=== PATIENT | female | born 1940 | race Caucasian/White ===

== ENCOUNTER 2022-05-08 21:52 | Inpatient (IN) | payer MEDICARE, OTHER, MEDICAID, SELFPAY ==
[2022-05-08] VITALS (7 sets, daily range): BP systolic 143–163; BP diastolic 65–75; PULSE 58–63; RESP 18; TEMP 37.8; O2SAT 94–100
--- NOTE | 2022-05-08 22:09 | DI.RAD.S_ITS ---
PROCEDURE: XR HIP W PEL IF DONE RT 2V INDICATIONS: GLF with pain, unable to ambulate TECHNIQUE: AP pelvis with lateral view of the right hip. COMPARISON: None. FINDINGS: Bones: There is a mildly displaced and impacted subcapital fracture of the right femoral neck. There is a proximal displacement of the femoral shaft component. The pelvic ring demonstrates no acute fracture. There are postsurgical changes demonstrated in the right bony pelvis with surgical screws traversing the right sacroiliac joint and right superior pubic ramus. Soft tissues: The visualized bowel gas pattern is normal. No suspicious soft tissue calcifications. IMPRESSION: 1. Subcapital fracture of the right femoral neck. Dictated by: Lux Waite M.D. on 05/08/2022 at 23:14 Approved by: Lux Wiate M.D. on 05/08/2022 at 23:17
--- NOTE | 2022-05-08 22:09 | DI.RAD.S_ITS ---
PROCEDURE: XR KNEE RT 3V INDICATIONS: GLF with pain TECHNIQUE: 3 views of the knee were acquired. COMPARISON: None. FINDINGS: Bones: No fractures or dislocations. There is mild joint space narrowing in the lateral compartment with subchondral sclerosis and osteophytosis. No suspicious bony lesions. Soft tissues: No joint effusion. No suspicious soft tissue calcifications. IMPRESSION: 1. No fracture or dislocation. 2. Mild osteoarthritic changes in the lateral compartment. Dictated by: Lux Waite M.D. on 05/08/2022 at 23:18 Approved by: Lux Waite M.D. on 05/08/2022 at 23:18
--- NOTE | 2022-05-08 23:07 | DI.RAD.S_ITS ---
PROCEDURE: XR CHEST 1V INDICATIONS: cough fall TECHNIQUE: One view of the chest was acquired. COMPARISON: None. FINDINGS: Surgical changes and devices: None. Lungs and pleura: No pleural effusions or definite pneumothorax. There are bilateral skin folds noted. Mild interstitial prominence is demonstrated likely representing chronic changes. The no acute consolidation. Mediastinum: Mediastinal contours appear normal. Heart size is normal. Bones and chest wall: No displaced fractures identified. No suspicious bony lesions. Overlying soft tissues appear unremarkable. IMPRESSION: 1. No definite acute cardiopulmonary disease. Dictated by: Lux Waite M.D. on 05/08/2022 at 23:50 Approved by: Lux Waite M.D. on 05/08/2022 at 23:56
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
[2022-05-08] MEDS: MORPHINE 2 MG/ML INJ IV (23:12)
[2022-05-08 23:14] LABS: COVID19 -Nasal RAPID POSITIVE (Negative)
[2022-05-08 23:39] LABS: Lactate (Lactic Acid) 0.8 mmol/L (0.7-2.1)
[2022-05-08 23:41] LABS: Alanine Aminotransferase 31 IU/L (<35); Albumin 3.8 g/dL (3.5-5.0); Albumin Globulin Ratio 1.3 (1.0-2.8); Alkaline Phosphatase 59 U/L (38-126); BUN Creatinine Ratio 32.3 (6-22); Bilirubin Total 0.5 mg/dL (0.2-1.3); Blood Urea Nitrogen 30 mg/dL (7-17); Carbon Dioxide 25 mmol/L (22-32); Chloride 96 mmol/L (98-107); Creatine Kinase 373 U/L (30-135); Estimated Glomerular Filt Rate > 60 mL/min (>60); Globulin 2.9 g/dL (1.7-4.1); Glucose 91 mg/dL (80-110); Lipase 173 U/L (23-300); Sodium 130 mmol/L (137-145); Total Protein 6.7 g/dL (6.3-8.2)
[2022-05-08 23:42] LABS: HEMOLYSIS 129 (0-50)
[2022-05-08 23:45] LABS: Aspartate Aminotransferase 68 IU/L (14-36); Potassium 3.9 mmol/L (3.4-5.1)
[2022-05-08 23:46] LABS: Add Manual Diff / Slide Review YES; Hematocrit 38.8 % (36-46); Hemoglobin 13.1 g/dL (12.0-16.0); Mean Corpuscular HGB Conc 33.7 % (30-36); Mean Corpuscular Hemoglobin 31.9 PG (26-34); Mean Corpuscular Volume 94.9 fL (80-100); Platelet Count 180 X10^3/uL (150-400); Red Blood Cell Count 4.09 X10^6/uL (4.0-5.2); Red Cell Distribution Width 13.6 % (11.6-14.8); White Blood Cell Count 5.8 X10^3/uL (4.5-11.0)
[2022-05-08 23:52] LABS: Troponin I 0.068 ng/mL (0.01-0.034)
[2022-05-08 23:56] LABS: CKMB % Relative Index 0.6 % (1.5-5.0); Creatine Kinase MB 2.32 ng/mL (<2.37)
[2022-05-08 23:58] LABS: Procalcitonin 0.07 ng/mL (<0.5)
[2022-05-09] VITALS (25 sets, daily range): BP systolic 93–164; BP diastolic 54–89; PULSE 52–68; RESP 10–34; TEMP 36.2–37.5; O2SAT 92–100; BMI 17.4
--- NOTE | 2022-05-09 | DI.RAD.S_ITS ---
PROCEDURE: XR HIP W PEL IF DONE RT 2V COMPARISON: [facility], CR, XR HIP W PEL IF DONE RT 2V, 05/08/2022, 22:09. INDICATIONS: CANNULATED SCREWS RIGHT HIP FINDINGS: Intraoperative fluoroscopic views of screw fixation in the right hip placement performed. IMPRESSION: Intraoperative fluoroscopic views of the right hip. Dictated by: Ford Lemos M.D. on 05/09/2022 at 18:09 Approved by: Ford Lemos M.D. on 05/09/2022 at 18:10
[2022-05-09 01:53] LABS: Troponin I 0.077 ng/mL (0.01-0.034)
[2022-05-09] MEDS: SODIUM CHLORIDE 0.9% 1,000 ML 100 ML IV (03:02)
[2022-05-09] MEDS: MORPHINE 2 MG/ML INJ IV (03:02)
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
--- NOTE | 2022-05-09 03:56 | PC.NURSE ---
Patient admitted to ICU 231 under acute care for a broken R femur. Surgery planned for later this afternoon. Patient positive for COVID, c/o fevers and cough for the past three days. On admission patient c/o 8/10 pain, PRN morphine given. BP 150's/70's, O2 > 95% on 2L NC. All admission questions answered.
[2022-05-09 04:05] LABS: RBC Urine 0-1/HPF (0-5/HPF); Squamous Epithelial Cell Urine 0-1 /HPF (0-5/HPF); WBC Urine None Seen (0-5/HPF)
[2022-05-09 04:06] LABS: Bacteria Urine None Seen
[2022-05-09 04:08] LABS: Culture Indicated Urine Cult Not Indicated
[2022-05-09] MEDS: ACETAMINOPHEN 325 MG TABLET 650 MG PO (05:18)
[2022-05-09] MEDS: NICOTINE 21 MG PATCH TOP (05:18)
[2022-05-09 05:33] LABS: Neutrophils Absolute Manual 4408 /uL (3000-5900); Total Cells Counted 100
[2022-05-09 05:34] LABS: RBC Morphology Normal Morphology
[2022-05-09 06:37] LABS: Add Manual Diff / Slide Review NO; Basophils Absolute Auto 0 /uL (0-100); Basophils Percent Auto 0.7 % (0-2); Eosinophils Absolute Auto 0 /uL (0-450); Eosinophils Percent Auto 0.1 % (2-4); Hematocrit 37.4 % (36-46); Hemoglobin 12.8 g/dL (12.0-16.0); Lymphocytes Absolute Auto 1900 /uL (1100-4500); Lymphocytes Percent Auto 35.4 % (25-40); Mean Corpuscular HGB Conc 34.2 % (30-36); Mean Corpuscular Hemoglobin 32.2 PG (26-34); Monocytes Absolute Auto 600 /uL (0-900); Monocytes Percent Auto 11.5 % (3-14); Neutrophils Absolute Auto 2800 /uL (1500-7000); Neutrophils Percent Auto 52.3 % (50-75); Platelet Count 152 X10^3/uL (150-400); Red Blood Cell Count 3.98 X10^6/uL (4.0-5.2); Red Cell Distribution Width 13.4 % (11.6-14.8); White Blood Cell Count 5.4 X10^3/uL (4.5-11.0)
[2022-05-09 06:44] LABS: Magnesium 1.5 mg/dL (1.6-2.3)
[2022-05-09 06:45] LABS: Alanine Aminotransferase 28 IU/L (<35); Albumin 3.4 g/dL (3.5-5.0); Albumin Globulin Ratio 1.3 (1.0-2.8); Alkaline Phosphatase 60 U/L (38-126); Aspartate Aminotransferase 52 IU/L (14-36); BUN Creatinine Ratio 31.9 (6-22); Bilirubin Total 0.2 mg/dL (0.2-1.3); Blood Urea Nitrogen 22 mg/dL (7-17); Calcium 7.4 mg/dL (8.4-10.2); Carbon Dioxide 23 mmol/L (22-32); Chloride 100 mmol/L (98-107); Estimated Glomerular Filt Rate > 60 mL/min (>60); Globulin 2.6 g/dL (1.7-4.1); Glucose 86 mg/dL (80-110); HEMOLYSIS < 15 (0-50); Potassium 3.4 mmol/L (3.4-5.1); Sodium 131 mmol/L (137-145)
[2022-05-09 06:46] LABS: Creatine Kinase 414 U/L (30-135)
[2022-05-09 06:57] LABS: Troponin I 0.089 ng/mL (0.01-0.034)
[2022-05-09 07:02] LABS: CKMB % Relative Index 0.4 % (1.5-5.0); Creatine Kinase MB 1.76 ng/mL (<2.37)
[2022-05-09] MEDS: DEXAMETHASONE 10 MG/ML VIAL 6 MG IV (08:31)
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
[2022-05-09] MEDS: MAGNESIUM SULFATE 4 GM/100 ML PIGGYBACK IV (09:58)
[2022-05-09] MEDS: CEFAZOLIN 2 GM/100 ML PREMIX 100 ML IV ×2 (09:58→16:52)
[2022-05-09] MEDS: POTASSIUM CHLORIDE 20 MEQ TAB 40 MEQ PO (09:58)
--- NOTE | 2022-05-09 12:54 | CM.DANOTE ---
DCP: Case received, EMR reviewed. Called patient from her room, since she is COVID positive. Introduced self and role. Was able to obtain information regarding patient's baseline activity level prior to her hospitalization. DCP assessment completed with information currently available. Patient is an 81 year old female who admitted early this morning to the care of the hospitalist team. PCP: Dr. West Payer: Medicare/IPDIA. Patient came to the hospital via ambulance secondary to having a ground level fall. Patient had been walking her dog, and her dog and another dog had an altercation causing her to get tangled in the leashe and have a ground level fall. EMS was called, patient sustained a displaced and impacted subcapital fracture of the right femoral neck. Patient is scheduled for surgery this afternoon. She is also COVID positive. Spoke to patient in her room via phone. She is pleasant, stated, she really wasn't having any COVID symptoms, just felt warm at times. Confirmed that she resides here in [place] with her grandson, Mark. At her baseline, she is independent. Mentioned if she needs rehab post surgery, barrier may be her COVID positive status. Did let her know that home health is also an option. Patient stated, do you think I'll be in a wheelchair. Let her know that she will have surgery, then work with P.T, who's goal is to get her moving, and back to her baseline. Tequila at [facility] had mentioned that she has a positive COVID resident. Asked her if she could possibly and take patient if she ends up needing penitentiary. Stated, she can run this by her team. Gave her patient information to review. P: DCP to continue to follow. Will see how she does post surgery with P.T. [facility] will review patient. Alessia Brand RN/Stenotypist Discharge Planning/Care Management CM Discharge Assessment Start: 05/09/22 12:40 Freq: Status: Active Protocol: Document 05/09/22 12:40 (Rec: 05/09/22 12:45 [id number]) Discharge Planning Assessment Assigned [employer] Alessia Brand RN/Stenotypist Advance Directives? No History Provided By Patient,Medical Record Prior Living Arrangements House Household Members family Type of transporation used prior to Drives own vehicle admit Independent with ADL's Yes Is patient alert and oriented? Yes Caregiver for Another No Comment Will have to see how patient does after surgery, and with P .T. Barriers to Discharge Yes Comment Patient has COVID, will be challenging to get her to a rehab facility if this is what she needs. Discharge Plan Alf Facility Transportation Arrangement Facility or family, if she is able to go home with home health Referrals Initiated Other Additional Comment Did call [facility] and asked if they take positive COVID, they will review this patient to see if they may possibly be able to accept. Whiteboard Updated in Patient Room with No name and ext. # of [facility] Comment Patient is COVID positive Review Status In Process Next Review Type Continued Stay Review
[2022-05-09] MEDS: clonazePAM 0.5 MG TABLET 2 MG PO ×2 (14:31→20:43)
[2022-05-09 15:14] LABS: Creatine Kinase 425 U/L (30-135)
[2022-05-09 15:30] LABS: CKMB % Relative Index 0.4 % (1.5-5.0); Creatine Kinase MB 1.51 ng/mL (<2.37)
--- NOTE | 2022-05-09 16:02 | SUR.OPER ---
Head on pillow. Supine on fracture table with operative leg secured in traction. Other leg secured in padded stirrup. Arms across chest, secured with sheet.
[2022-05-09] MEDS: BUPIVACAINE 0.5% W/ EPI (PF) 30 ML VIAL INJ (17:35)
--- NOTE | 2022-05-09 18:06 | P.OP_ITS ---
Operative Date/Time/Diagnoses Date of procedure: 05/09/22 Time of procedure: 17:00 Pre-op diagnosis: Right femoral neck fracture Post-op diagnosis: same Procedure & Clinicians Procedure: Closed reduction internal fixation femoral neck fracture Same procedure as scheduled: Yes Indications: Right femoral neck fracture Click Yes if Unassisted: Yes Anesthesia Type: Spinal Operative Notes Findings: Impacted slightly displaced femoral neck fracture Closure Type: primary Applied: implant(s) (3 x 7.3 mm partially-threaded cannulated screws) Estimated Blood Loss (mL): 5 Procedure in detail: On date of service, patient was met in the holding area where his operative site was signed and witnessed by the OR staff. Surgeries once again discussed with the patient and any remaining questions or concerns he had were answered fully. Patient received 2 g of Ancef preoperatively. Patient was taken back to the operating theater where general anesthesia was admitted. Patient was then transferred to the fracture table. Both feet were well padded and placed into fracture boot. A well-padded perineal post was placed. The left leg was slightly elevated and internally rotated was some distraction. The right leg was placed in scissor position on a lowered position. X-ray was brought in and AP and lateral views were obtained showing maintenance of a nondisplaced femoral neck fracture. Time-out had previously been formed verifying patient's name, procedure, and operative site. The leg was then prepped and draped in the normal sterile fashion. Ten blade was used to make a small incision on the lateral aspect of thigh. Adams elevator was then used to elevate off a small area of the muscular tissue so we could get to the shaft of the femur. Guidewire was placed up into the femoral head in a center center position. This was verified on x-ray. Once we were satisfied with the position of the guidewire 2 additional guidewires were placed using the targeting guide. These were also verified with AP and lateral views with the C- arm. Once we were satisfied with the positioning and of the 3 guidewires they were measured and the appropriate screws were placed. Final x-rays were obtained verifying screw positioning and maintenance of reduction of the femoral neck fracture. The wound was then copiously irrigated and then closed in a layered fashion. The wound was cleaned, dried, and dressed. Patient was taken to the PACU in stable condition. Complications: none Post-operative Condition: stable Disposition: Acute Care Plan for aftercare: Patient will be toe-touch weight-bearing to the right lower extremity
--- NOTE | 2022-05-09 18:19 | SUR.PHASEI ---
Report called to Monique.
--- NOTE | 2022-05-09 18:46 | SUR.PHASEI ---
Patient transferred to [facility] on her bed. VS stable. Report to [place]. IV saline locked. Right hip dressing CDI. Spinal at L4. SCDS applied.
[2022-05-09] MEDS: LACTATED RINGERS 1,000 ML 125 ML IV (18:56)
[2022-05-09] MEDS: GABAPENTIN 100 MG CAPSULE PO (20:43)
[2022-05-09] MEDS: DOCUSATE 100 MG CAPSULE PO (20:43)
[2022-05-09] MEDS: TRAZODONE 100 MG TABLET PO (20:43)
[2022-05-09 21:30] LABS: Creatine Kinase 406 U/L (30-135)
[2022-05-09 21:43] LABS: Troponin I 0.046 ng/mL (0.01-0.034)
[2022-05-09 21:45] LABS: CKMB % Relative Index 0.4 % (1.5-5.0); Creatine Kinase MB 1.69 ng/mL (<2.37)
[2022-05-09] MEDS: ONDANSETRON 4 MG ODT PO (23:46)
[2022-05-10] VITALS (43 sets, daily range): BP systolic 96–147; BP diastolic 55–67; PULSE 46–72; RESP 12–44; TEMP 36.3–36.6; O2SAT 87–95
[2022-05-10] MEDS: CEFAZOLIN 2 GM/100 ML PREMIX 100 ML IV ×2 (01:10→08:39)
[2022-05-10] MEDS: LACTATED RINGERS 1,000 ML 125 ML IV (04:15)
[2022-05-10] MEDS: OXYCODONE IR 10 MG TABLET PO ×2 (06:46→20:19)
--- NOTE | 2022-05-10 08:07 | P.PN_ITS ---
Subjective Subjective Date Patient Seen: 05/10/22 Time Patient Seen: 16:00 Interval history: Patient saying her pain in her right hip is well controlled. However she would like to have an external catheter so she doesn't have to get up to go to the bathroom as much. Exam Vital Signs (past 8 hours): - 05/10/22 04:00 05/10/22 07:58 Temperature 97.3 F L 97.8 F Pulse Rate 57 L 50 L Respiratory Rate 17 28 H Blood Pressure 98/58 L 96/65 Pulse Oximetry 94 93 Oxygen Flow Rate 0 Oxygen Delivery Method Nasal Cannula Oxygen Flow Rate 0 Narrative Exam Narrative: Gen: Alert, oriented, thin 81 y.o. female, appears to be comfortable HEENT: normocephalic, atraumatic, conjunctiva clear, sclera non-icteric, oral mucosa pink and moist Neck: supple, full ROM, no JVD, trachea is midline Resp: Lungs CTA, non-labored breathing CV: RRR, no murmur or rubs Abd: soft, non-tender, normoactive BTs Skin: no lesions or rashes, dry and intact Neuro: Alert and oriented X 4 w/no focal deficits. Speech clear and coherent. Extremities: not currently ambulatory, negative Meg?s sign Psyche: normal mood and affect. Objective Labs Result Diagrams: 05/10/22 08:10 05/10/22 08:10 Labs: Laboratory Results - last 24 hr 05/09/22 05/09/22 05/09/22 06:18 14:57 21:16 Total Creatine Kinase 425 H 406 H CK-MB (CK-2) 1.51 1.69 CK-MB (CK-2) Rel Index 0.4 L 0.4 L Troponin I 0.070 H 0.046 H Antibody Identification Anti-Fya [facility] Medical History Anxiety Surgical History History of hip surgery Social History household members: family Smoking Status: Current every day smoker alcohol intake: former Assessment & Plan Assessment & Plan narrative: Right sided subcapital fracture of her hip, present on admission * Dr. Oshea, Orthopedic Surgery consulted and repaired on 05/10 * Scheduled tylenol for fever and pain control * Tramadol and IV morphine for pain control Elevated Troponin, present on admission * 05/08 troponin was 0.068 and repeat troponin on 05/09 was 0.077, latest at 0.046 * Repeat EKG if she develops chest pain * May be a form of myocarditis, an atypical presentation associated with COVID- 19 COVID-19, present on admission * She has had mild symptoms including fever and cough concerning for having a combination of the parent virus combined with the newer B2 variant * Supplemental oxygen as needed, she may require nebulization * Airborne precautions Elevated Blood pressure without a diagnosis of hypertension * Likely due to pain or underlying condition that has not been treated * Smoking status puts her at greater risk for coronary disease * Consider discharge on an mylene, will hold until after surgery * Requested obtaining records from her PCP and [facility] Anxiety, chronic * Patient is benzodiazapine dependent * Resume clonazapine post surgery or resume if surgery is delayed. She takes 2 mg po tid. Tobacco dependence * She is written for a nicoderm patch 21 mcg, change daily * Smoking cessation discussed. VTE Prophylaxis: Lovenox 40 daily Consultants: Dr. Oshea, Orthopedic Surgery care and involvement in the patient?s care is appreciated. Dispo: Home with on 05/11. Code status: Full code as discussed with the patient who identifies her grandson, Simon Flores as her surrogate and POA COVID-19 COVID-19 status: Positive Result date/Date tested (Pos, Neg/Pending): 05/09/22 Time Spent With Patient Critical Care time: I spent a total of [] minutes of critical care time on this patient's care today; this time is exclusive of procedural time.
[2022-05-10 08:36] LABS: Add Manual Diff / Slide Review NO; Basophils Absolute Auto 0 /uL (0-100); Basophils Percent Auto 0.6 % (0-2); Eosinophils Absolute Auto 0 /uL (0-450); Eosinophils Percent Auto 0.1 % (2-4); Hematocrit 35.3 % (36-46); Lymphocytes Absolute Auto 2100 /uL (1100-4500); Lymphocytes Percent Auto 30.2 % (25-40); Mean Corpuscular HGB Conc 33.9 % (30-36); Mean Corpuscular Hemoglobin 31.8 PG (26-34); Mean Corpuscular Volume 93.7 fL (80-100); Monocytes Absolute Auto 700 /uL (0-900); Monocytes Percent Auto 10.3 % (3-14); Neutrophils Absolute Auto 4000 /uL (1500-7000); Neutrophils Percent Auto 58.8 % (50-75); Platelet Count 158 X10^3/uL (150-400); Red Blood Cell Count 3.77 X10^6/uL (4.0-5.2); Red Cell Distribution Width 13.4 % (11.6-14.8); White Blood Cell Count 6.8 X10^3/uL (4.5-11.0)
[2022-05-10] MEDS: DOCUSATE 100 MG CAPSULE PO ×2 (08:39→20:18)
[2022-05-10] MEDS: NICOTINE 21 MG PATCH TOP (08:39)
[2022-05-10] MEDS: DEXAMETHASONE 10 MG/ML VIAL 6 MG IV (08:39)
[2022-05-10] MEDS: ENOXAPARIN 40 MG/0.4 ML SYRINGE SUBCUT (08:39)
[2022-05-10] MEDS: clonazePAM 0.5 MG TABLET 2 MG PO ×3 (08:42→20:18)
[2022-05-10 08:50] LABS: Alanine Aminotransferase 24 IU/L (<35); Albumin 2.9 g/dL (3.5-5.0); Albumin Globulin Ratio 1.2 (1.0-2.8); Alkaline Phosphatase 56 U/L (38-126); Aspartate Aminotransferase 48 IU/L (14-36); BUN Creatinine Ratio 23.5 (6-22); Bilirubin Total 0.1 mg/dL (0.2-1.3); Blood Urea Nitrogen 16 mg/dL (7-17); Calcium 7.1 mg/dL (8.4-10.2); Carbon Dioxide 28 mmol/L (22-32); Chloride 102 mmol/L (98-107); Estimated Glomerular Filt Rate > 60 mL/min (>60); Globulin 2.5 g/dL (1.7-4.1); Glucose 109 mg/dL (80-110); HEMOLYSIS < 15 (0-50); Magnesium 2.2 mg/dL (1.6-2.3); Potassium 4.5 mmol/L (3.4-5.1); Sodium 135 mmol/L (137-145); Total Protein 5.4 g/dL (6.3-8.2)
[2022-05-10] MEDS: MAG HYDROX/ALUM/SIMETH 30 ML UDC PO (10:39)
[2022-05-10] MEDS: ONDANSETRON 4 MG ODT PO (10:51)
--- NOTE | 2022-05-10 11:31 | P.PN_ITS ---
Subjective Subjective Date Patient Seen: 05/10/22 Time Patient Seen: 11:32 Interval history: Patient postoperative day 1. For closed reduction percutaneous pinning of her right hip. Patient is doing well in regards to pain. Complaining of some nausea but not much in regards to right hip pain. Has not yet seen Physical therapy today. Exam Vital Signs (past 8 hours): - 05/10/22 04:00 05/10/22 07:58 Temperature 97.3 F L 97.8 F Pulse Rate 57 L 50 L Respiratory Rate 17 28 H Blood Pressure 98/58 L 96/65 Pulse Oximetry 94 93 Oxygen Flow Rate 0 Oxygen Delivery Method Nasal Cannula Oxygen Flow Rate 0 Narrative Exam Narrative: Dressings clean and dry. Positive dorsiflexion plantar flexion of the toes and ankles. Palpable pedal pulses. Brisk cap refill. Nontender to palpation to the posterior aspect of the calf. Objective Labs Result Diagrams: 05/10/22 08:10 05/10/22 08:10 Labs: Laboratory Results - last 24 hr 05/09/22 05/09/22 05/10/22 14:57 21:16 08:10 WBC 6.8 RBC 3.77 L Hgb 12.0 Hct 35.3 L MCV 93.7 MCH 31.8 MCHC 33.9 RDW 13.4 Plt Count 158 Neut % (Auto) 58.8 Lymph % (Auto) 30.2 Sheridan % (Auto) 10.3 Eos % (Auto) 0.1 L Baso % (Auto) 0.6 Neut # (Auto) 4000 Lymph # (Auto) 2100 Sheridan # (Auto) 700 Eos # (Auto) 0 Baso # (Auto) 0 Sodium Potassium Chloride Carbon Dioxide BUN Creatinine Estimated GFR BUN/Creatinine Ratio Glucose Calcium Magnesium Total Bilirubin AST ALT Alkaline Phosphatase Total Creatine Kinase 425 H 406 H CK-MB (CK-2) 1.51 1.69 CK-MB (CK-2) Rel Index 0.4 L 0.4 L Troponin I 0.070 H 0.046 H Total Protein Albumin Globulin Albumin/Globulin Ratio 05/10/22 08:10 WBC RBC Hgb Hct MCV MCH MCHC RDW Plt Count Neut % (Auto) Lymph % (Auto) Sheridan % (Auto) Eos % (Auto) Baso % (Auto) Neut # (Auto) Lymph # (Auto) Sheridan # (Auto) Eos # (Auto) Baso # (Auto) Sodium 135 L Potassium 4.5 Chloride 102 Carbon Dioxide 28 BUN 16 Creatinine 0.68 Estimated GFR > 60 BUN/Creatinine Ratio 23.5 H Glucose 109 Calcium 7.1 L Magnesium 2.2 Total Bilirubin 0.1 L AST 48 H ALT 24 Alkaline Phosphatase 56 Total Creatine Kinase CK-MB (CK-2) CK-MB (CK-2) Rel Index Troponin I Total Protein 5.4 L Albumin 2.9 L Globulin 2.5 Albumin/Globulin Ratio 1.2 PFSH Medical History Anxiety Surgical History History of hip surgery Social History household members: family Smoking Status: Current every day smoker alcohol intake: former Assessment & Plan Post-op Postoperative Procedures: Procedures Operation Date: 05/09/22 16:45 Actual Procedure Side Surgeon p ORIF Hip/Cannulated Screws Right Randall Oshea MD Postoperative day: 1 Postoperative plan narrative: Patient doing well after surgery to the right hip. Patient will be toe-touch weight-bearing on the right side. Patient can be discharged home or to a SNF when medically cleared.
--- NOTE | 2022-05-10 14:23 | CM.DPNOTE ---
DCP Note Tequila from [facility] states patient is being considered for admission Wednesday if her team can get permission from two residents to move rooms. That way patient and another C+ resident can room together January will stay in close contact JW
--- NOTE | 2022-05-10 15:41 | PT.OIE ---
Current Diagnoses Fracture of unspecified part of neck of right femur, initial encounter for closed fracture (05/09/22) Procedure and treatment not carried out because of other contraindication (05/09/22) Past Medical History (Last Reviewed 05/09/22 @ 09:27 by Randall Oshea MD) Anxiety Past Surgical History (Last Reviewed 05/09/22 @ 09:27 by Randall Oshea MD) History of hip surgery Visit Care Team Role Provider Type Doctor MD Clarence Primary Care Provider Non-Staff Specialty: Medical Address: Phone: Fax: Email: Jesse Vasquez DO Other Providers Physician Specialty: Anesthesiology Address: [address] [place] [phone] Email: Myles Stringer MD Other Providers Physician Specialty: ANE Address: [address] [place] [address] Email: Nancy Polanco MD Other Providers Physician Specialty: Anesthesiology Address: [address] [place] [phone] Phone: Fax: Email: Jin Forbes MD Other Providers Physician Specialty: Anesthesiology Address: [address] [place] [address] Email: Jarod Barber MD Other Providers Physician Specialty: Anesthesiology Address: [address] [place] [phone] Email: Krystina Stinson MD Other Providers Physician Specialty: Anesthesiology Address: [address] [place] [phone] Email: Sabra Paiz MD Other Providers Physician Specialty: Anesthesiology Address: Phone: Fax: Email: Dory Correa MD Other Providers Physician Specialty: Anesthesiology Address: [address] [place] [phone] Email: Fredrick Rojas MD Other Providers Physician Specialty: Anesthesiology Address: [address] [place] [address], [phone] Email: Zuri Douglas DO Emergency Provider Physician Referring Provider Specialty: Emergency Medicine Address: [address] [place] [address], [phone] Email: [email or web address] [email or web address] Kate Admit Provider Physician Attending Provider Specialty: Internal Medicine Address: [address] [place] [address], [phone] Email: [email or web address]
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
[2022-05-10] MEDS: TRAZODONE 100 MG TABLET PO (20:18)
[2022-05-10] MEDS: GABAPENTIN 100 MG CAPSULE PO (20:19)
--- NOTE | 2022-05-10 21:30 | PC.NURSE ---
Pt requesting pain meds for hip pain 01/23. cooperative with care and staff. Pt is alert but needs lots of reeducation and reassurance. CODE CLERK noticed pt seems more confused today than yesterday. Pt verbalized worries cable bill and rent is due this week and i need to get home to my dog. RN reassured pt that care management can help her with this. Pt calmed down and thanked staff.
[2022-05-11] VITALS (15 sets, daily range): BP systolic 109–131; BP diastolic 54–60; PULSE 44–77; RESP 10–38; TEMP 36.3–37; O2SAT 91–97
[2022-05-11] MEDS: OXYCODONE IR 10 MG TABLET PO (00:15)
[2022-05-11] MEDS: ACETAMINOPHEN 325 MG TABLET 650 MG PO ×3 (00:16→20:36)
[2022-05-11 06:04] LABS: Alanine Aminotransferase 19 IU/L (<35); Albumin 2.7 g/dL (3.5-5.0); Albumin Globulin Ratio 1.1 (1.0-2.8); Alkaline Phosphatase 46 U/L (38-126); Aspartate Aminotransferase 41 IU/L (14-36); BUN Creatinine Ratio 26.9 (6-22); Bilirubin Total 0.1 mg/dL (0.2-1.3); Blood Urea Nitrogen 18 mg/dL (7-17); Calcium 7.2 mg/dL (8.4-10.2); Carbon Dioxide 28 mmol/L (22-32); Chloride 102 mmol/L (98-107); Estimated Glomerular Filt Rate > 60 mL/min (>60); Globulin 2.4 g/dL (1.7-4.1); Glucose 103 mg/dL (80-110); HEMOLYSIS < 15 (0-50); Potassium 4.1 mmol/L (3.4-5.1); Sodium 133 mmol/L (137-145); Total Protein 5.1 g/dL (6.3-8.2)
[2022-05-11 06:05] LABS: Add Manual Diff / Slide Review NO; Basophils Absolute Auto 0 /uL (0-100); Basophils Percent Auto 0.5 % (0-2); Eosinophils Absolute Auto 0 /uL (0-450); Eosinophils Percent Auto 0.5 % (2-4); Hematocrit 30.9 % (36-46); Hemoglobin 10.7 g/dL (12.0-16.0); Lymphocytes Absolute Auto 1700 /uL (1100-4500); Mean Corpuscular HGB Conc 34.5 % (30-36); Mean Corpuscular Hemoglobin 32.3 PG (26-34); Mean Corpuscular Volume 93.8 fL (80-100); Monocytes Absolute Auto 500 /uL (0-900); Monocytes Percent Auto 8.6 % (3-14); Neutrophils Absolute Auto 3100 /uL (1500-7000); Neutrophils Percent Auto 58.4 % (50-75); Platelet Count 141 X10^3/uL (150-400); Red Cell Distribution Width 13.6 % (11.6-14.8); White Blood Cell Count 5.4 X10^3/uL (4.5-11.0)
[2022-05-11] MEDS: ENOXAPARIN 40 MG/0.4 ML SYRINGE SUBCUT (09:27)
[2022-05-11] MEDS: DOCUSATE 100 MG CAPSULE PO ×2 (09:27→20:36)
[2022-05-11] MEDS: clonazePAM 0.5 MG TABLET 2 MG PO ×3 (09:27→20:35)
[2022-05-11] MEDS: NICOTINE 21 MG PATCH TOP (09:28)
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
--- NOTE | 2022-05-11 14:09 | OT.IPNOTE ---
Attempted to see x 2 today. Pt declined this am stating that she needed to rest and in the PM she requested assist with bed mobility (max a) but declined further evaluation. Pt left supine in bed at that time with all needs within reach and call button in hand. Will continue to follow.
--- NOTE | 2022-05-11 16:08 | PT-IP ANOTE ---
Pt refused PM tx, she stated has a fever and not up for any activity, did get up with nurse again since saw in am. Pt reports spoke with physician and was told will be doing something for her but couldn't remember what was discussed. Pt was not seen for PT, will return in am for further mobility assessment.
--- NOTE | 2022-05-11 16:18 | CM.DPNOTE ---
Discharge Planning Note: Was not able to meet with patient today due to Covid+. January at [facility] continuing to review for acceptance possibly tomorrow and awaiting a return call. Chani Torrez RN/PT
--- NOTE | 2022-05-11 16:35 | P.PN_ITS ---
Subjective Subjective Date Patient Seen: 05/11/22 Interval history: Patient saying her pain in her right hip is worse today. It is painful when she moves but denies any other complaints including chest pain, nausea, vomiting. No bowel movement for a few days now, would like some laxitives. Exam Vital Signs (past 8 hours): - 05/11/22 11:15 05/11/22 11:50 Temperature 98.1 F 98.5 F Pulse Rate 63 77 Respiratory Rate 16 Blood Pressure 125/60 131/60 Pulse Oximetry 97 96 Oxygen Flow Rate 3 3 Oxygen Delivery Method Nasal Cannula Oxygen Flow Rate 3 Narrative Exam Narrative: Gen: Alert, oriented, thin 81 y.o. female, appears to be comfortable HEENT: normocephalic, atraumatic, conjunctiva clear, sclera non-icteric, oral mucosa pink and moist Neck: supple, full ROM, no JVD, trachea is midline Resp: Lungs CTA, non-labored breathing CV: RRR, no murmur or rubs Abd: soft, non-tender, normoactive BTs Skin: no lesions or rashes, dry and intact Neuro: Alert and oriented X 4 w/no focal deficits. Speech clear and coherent. Extremities: not currently ambulatory, no edema or joint effusions Psyche: normal mood and affect. Objective Labs Result Diagrams: 05/11/22 05:36 05/11/22 05:36 Labs: Laboratory Results - last 24 hr 05/11/22 05/11/22 05:36 05:36 WBC 5.4 RBC 3.30 L Hgb 10.7 L Hct 30.9 L MCV 93.8 MCH 32.3 MCHC 34.5 RDW 13.6 Plt Count 141 L Neut % (Auto) 58.4 Lymph % (Auto) 32.0 [place] % (Auto) 8.6 Eos % (Auto) 0.5 L Baso % (Auto) 0.5 Neut # (Auto) 3100 Lymph # (Auto) 1700 [place] # (Auto) 500 Eos # (Auto) 0 Baso # (Auto) 0 Sodium 133 L Potassium 4.1 Chloride 102 Carbon Dioxide 28 BUN 18 H Creatinine 0.67 Estimated GFR > 60 BUN/Creatinine Ratio 26.9 H Glucose 103 Calcium 7.2 L Magnesium 2.0 Total Bilirubin 0.1 L AST 41 H ALT 19 Alkaline Phosphatase 46 Total Protein 5.1 L Albumin 2.7 L Globulin 2.4 Albumin/Globulin Ratio 1.1 [facility] Medical History Anxiety Surgical History History of hip surgery Social History household members: family Smoking Status: Current every day smoker alcohol intake: former Assessment & Plan Assessment & Plan narrative: Right sided subcapital fracture of her hip, present on admission * Dr. Oshea, Orthopedic Surgery consulted and repaired on 05/10 * continue pain control with oxycodone, tylenol Elevated Troponin, myocardial injury, present on admission, improved. * 05/08 troponin was 0.068 and repeat troponin on 05/09 was 0.077, then downtrended. * May be a form of myocarditis, an atypical presentation associated with COVID- 19 * more than likely elevated in setting of demand. Denies current complaints of chest pain. COVID-19, present on admission * continue isolation precautision Elevated Blood pressure without a diagnosis of hypertension * Likely due to pain, improved today without antihypertensives. Anxiety, chronic * Patient is on benzodiazepines chronically * Resume clonazapine Tobacco dependence * She is written for a nicoderm patch 21 mcg, change daily * Smoking cessation discussed. VTE Prophylaxis: Lovenox 40 daily Consultants: Dr. Oshea, Orthopedic Surgery care and involvement in the patient?s care is appreciated. Dispo: pending SNF Code status: Full code as discussed with the patient who identifies her grandson, Simon Flores as her surrogate and POA COVID-19 COVID-19 status: Positive Result date/Date tested (Pos, Neg/Pending): 05/09/22 Time Spent With Patient Critical Care time: I spent a total of [] minutes of critical care time on this patient's care today; this time is exclusive of procedural time.
[2022-05-11] MEDS: TRAZODONE 100 MG TABLET PO (20:35)
[2022-05-11] MEDS: GABAPENTIN 100 MG CAPSULE PO (20:37)
[2022-05-12] VITALS: BP 98/50; PULSE 65; RESP 26; TEMP 37; O2SAT 95
[2022-05-12 04:00] VITALS: BP 103/56; PULSE 71; RESP 24; TEMP 36.4; O2SAT 93
--- NOTE | 2022-05-12 06:57 | PC.NURSE ---
Patient AAOX4, good pain control with tylenol. Slept well during the night. Needs assist to reposition. Has been SR 60s.
[2022-05-12] MEDS: NICOTINE 21 MG PATCH TOP (08:13)
[2022-05-12] MEDS: clonazePAM 0.5 MG TABLET 2 MG PO (08:13)
[2022-05-12] MEDS: DOCUSATE 100 MG CAPSULE PO (08:13)
[2022-05-12] MEDS: ENOXAPARIN 40 MG/0.4 ML SYRINGE SUBCUT (08:14)
[2022-05-12 09:18] VITALS: BP 106/57; PULSE 65; RESP 16; TEMP 36.6; O2SAT 96
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
--- NOTE | 2022-05-12 11:30 | PT-IP ANOTE ---
Attempted to see pt at 11:30, pt c/o increased fatigue and requests to rest prior to transfer to SNF this PM.
[2022-05-12] MEDS: ACETAMINOPHEN 325 MG TABLET 650 MG PO (12:05)
[2022-05-12] MEDS: MAGNESIUM HYDROXIDE 30 ML UDC PO (12:39)
--- NOTE | 2022-05-12 14:08 | PC.NURSE ---
Report called to [facility] - Transport here with Wheelchair to take pt. discharged on 3l/nc.
--- NOTE | 2022-05-12 14:50 | CM.DPNOTE ---
DC Note DC today to [facility] via cabulance, patient agreeable to plan No new COVID needed, Shasha LOYA faxed all completed and signed DC ppk and RN Brook completed RN to RN report JW
== END 2022-05-12 14:23 | DRG 480 ==
LOC: ED 05-09 02:11 → AC 05-09 02:22 → ICU 05-09 02:47
PROVIDERS: Orthopaedic Surgery; Admitting Provider Nurse Practitioner Family; Emergency Provider Emergency Medicine; Referring Provider Emergency Medicine; Visit Provider Nurse Practitioner Family
PROC: 0QS634Z Reposition Right Upper Femur with Internal Fixation Device, Percutaneous Approach (ICD-10-PCS; principal; 2022-05-09 16:45)
DX: S72.011A Unspecified intracapsular fracture of right femur, initial encounter for closed fracture (principal); U07.1 COVID-19; I5A Non-ischemic myocardial injury (non-traumatic); F41.9 Anxiety disorder, unspecified; R03.0 Elevated blood-pressure reading, without diagnosis of hypertension; G89.29 Other chronic pain; F17.210 Nicotine dependence, cigarettes, uncomplicated; W01.0XXA Fall on same level from slipping, tripping and stumbling without subsequent striking against object, initial encounter; Y93.K1 Activity, walking an animal
CPT/HCPCS: 01210; 36415; 71045; 73502; 73562; 76000; 80053; 81015; 82550; 82553; 83605; 83690; 83735; 84145; 84484; 85007; 85025; 86850; 86870; 86900; 86901; 87040; 87635; 87797; 93005; 94762; 96374; 97116; 97162; 97530; 99284; C9803; J0690; J1100; J1650; J2270; J3475

== ENCOUNTER 2023-09-03 20:25 | Emergency (ER) | payer MEDICARE, OTHER, MEDICAID, SELFPAY ==
[2022-05-09 03:30] VITALS: BMI 17.4
[2023-09-03] VITALS (9 sets, daily range): BP systolic 130–150; BP diastolic 60–77; PULSE 52–60; RESP 17–18; TEMP 36.9; O2SAT 86–99; BMI 18.8
--- NOTE | 2023-09-03 21:01 | DI.RAD.S_ITS ---
PROCEDURE: XR CHEST 1V INDICATIONS: LL lung/ rib pain with breathing TECHNIQUE: One view of the chest was acquired. COMPARISON: [facility], CR, XR CHEST 1V, 05/08/2022, 23:25. FINDINGS: Surgical changes and devices: None. Lungs and pleura: Lungs are clear. No pleural effusions or pneumothorax. Mediastinum: Mediastinal contours appear normal. Heart size is normal. Bones and chest wall: No suspicious bony lesions. Overlying soft tissues appear unremarkable. IMPRESSION: No acute cardiopulmonary abnormality is seen. Dictated by: Gulshan Gomez M.D. on 09/03/2023 at 22:39 Approved by: Gulshan Gomez M.D. on 09/03/2023 at 22:39
--- NOTE | 2023-09-03 21:02 | ED_ITS ---
HPI - Chest Pain General Chief Complaint: Chest Pain Stated Complaint: Pain under Left rib Time Seen by Provider: 09/03/23 20:51 Source: patient and EMS Mode of arrival: EMS Limitations: no limitations History of Present Illness HPI narrative: Patient is an 83-year-old female. She is here for evaluation of discomfort under her left lower ribs and upper abdomen. She actually states it is on both sides for upper abdomen but the left side is worse than the right. She denies any specific trauma. No shortness of breath. No vomiting. No chest pain. This is actually been going on for the past several days/weeks. Is scheduled to see her primary doctor on Wednesday for this. She already has a chest x-ray ordered but she states that her discomfort was to the point that she could not wait until Wednesday. She also states she has a bed sore on her buttocks that is draining. And she is supposed to see her primary doctor for this as well on Wednesday. Related Data Home Medications Medication Instructions Recorded Confirmed gabapentin 100 mg capsule 100 mg PO BEDTIME 05/09/22 05/09/22 trazodone 100 mg tablet 100 mg BEDTIME 05/09/22 05/09/22 Previous Rx's Medication Instructions Recorded clonazepam 1 mg tablet 2 mg (2 x 1 mg) PO TID 7 days #21 05/12/22 tabs Allergies Allergy/AdvReac Type Severity Reaction Status Date / Time Sulfa (Sulfonamide Allergy Verified 05/08/22 22:03 Antibiotics) Review of Systems Cardiovascular Cardiovascular: Reports system reviewed and no additional complaints, except as documented Respiratory Respiratory: Reports system reviewed and no additional complaints, except as documented Gastrointestinal Gastrointestinal: Reports system reviewed and no additional complaints, except as documented Genitourinary Genitourinary: Reports system reviewed and no additional complaints, except as documented Integumentary/Breasts Skin/Breast: Reports system reviewed and no additional complaints, except as documented Patient History Medical History Anxiety Surgical History History of hip surgery Social History household members: family Smoking Status: Current every day smoker alcohol intake: former Smoking Status: Current every day smoker tobacco type: cigarettes Substance Use Type: does not use Exam Initial Vital Signs Initial Vital Signs: Vital Signs Pulse Rate 53 L 09/03/23 20:30 Blood Pressure 130/60 09/03/23 20:30 Pulse Oximetry 95 09/03/23 20:30 HENMT Head: normal to inspection and normocephalic GI Inspection: normal to inspection and non-distended Palpation: soft, No firm, No guarding and tender (Left upper quadrant/right upper quadrant) Skin Other: She does have what appears to be a draining sinus without surrounding erythema at the superior aspect of the intergluteal cleft. No abscess felt underneath. Neuro General: patient alert and patient awake Extrem General: capillary refill normal Course Orders Ordered: ED Orders 09/03/23 21:01 XR chest 1V Stat 09/03/23 21:52 Complete Blood Count AUTO DIFF Stat Comprehensive Metabolic Panel Stat Lipase Stat Vital Signs Vital signs: Vital Signs - 8 hr 09/03/23 20:30 09/03/23 20:30 09/03/23 20:36 Temperature 98.5 F Pulse Rate 53 L 58 L Respiratory Rate 18 Blood Pressure 130/60 130/60 Pulse Oximetry 95 97 Oxygen Delivery Method Room Air 09/03/23 21:00 09/03/23 21:30 09/03/23 22:00 Temperature Pulse Rate 52 L 52 L 54 L Respiratory Rate Blood Pressure Pulse Oximetry 99 98 96 Oxygen Delivery Method 09/03/23 22:30 09/03/23 23:00 09/03/23 23:05 Temperature 98.5 F Pulse Rate 54 L 60 Respiratory Rate 17 Blood Pressure 150/77 H Pulse Oximetry 96 98 86 L Oxygen Delivery Method Room Air 09/03/23 23:06 09/03/23 23:06 Temperature Pulse Rate Respiratory Rate Blood Pressure 150/77 H Pulse Oximetry 97 Oxygen Delivery Method MDM - Chest Pain Lab Data Attestation: I reviewed the patient's lab results. 09/03/23 21:52 09/03/23 21:52 Labs: Lab Results 09/03/23 Range/Units 21:52 WBC 7.0 (4.5-11.0) X10^3/uL RBC 4.07 (4.0-5.2) X10^6/uL Hgb 12.8 (12.0-16.0) g/dL Hct 38.3 (36-46) % MCV 93.9 (80-100) fL MCH 31.4 (26-34) PG MCHC 33.5 (30-36) % RDW 13.8 (11.6-14.8) % Plt Count 233 (150-400) X10^3/uL Neut % (Auto) Not Reportable Lymph % (Auto) Not Reportable [place] % (Auto) Not Reportable Eos % (Auto) Not Reportable Baso % (Auto) Not Reportable Lymph # (Auto) Not Reportable [place] # (Auto) Not Reportable Baso # (Auto) Not Reportable Total Counted 100 Seg Neutrophils % 57.0 (38-70) % Lymphocytes % (Manual) 33.0 (25-45) % Monocytes % (Manual) 3.0 (2-11) % Eosinophils % (Manual) 6.0 H (2-4) % Basophils % (Manual) 1.0 (0-1) % Neutrophils # (Manual) 3990 (6695-5029) /uL RBC Morphology Normal morphology Sodium 132 L (137-145) mmol/L Potassium 4.0 (3.4-5.1) mmol/L Chloride 97 L (98-107) mmol/L Carbon Dioxide 29 (22-32) mmol/L BUN 10 (7-17) mg/dL Creatinine 0.63 (0.52-1.04) mg/dL Estimated GFR > 60 (>60) mL/min BUN/Creatinine Ratio 15.9 (6-22) Glucose 90 (80-110) mg/dL Calcium 9.0 (8.4-10.2) mg/dL Total Bilirubin 0.4 (0.2-1.3) mg/dL AST 25 (14-36) IU/L ALT 12 (<35) IU/L Alkaline Phosphatase 77 (38-126) U/L Total Protein 6.6 (6.3-8.2) g/dL Albumin 3.8 (3.5-5.0) g/dL Globulin 2.8 (1.7-4.1) g/dL Albumin/Globulin Ratio 1.4 (1.0-2.8) Lipase 79 (23-300) U/L Imaging Data Chest x-ray: Radiologist's Impression: PROCEDURE: XR CHEST 1V INDICATIONS: LL lung/ rib pain with breathing TECHNIQUE: One view of the chest was acquired. COMPARISON: [facility], CR, XR CHEST 1V, 05/08/2022, 23:25. FINDINGS: Surgical changes and devices: None. Lungs and pleura: Lungs are clear. No pleural effusions or pneumothorax. Mediastinum: Mediastinal contours appear normal. Heart size is normal. Bones and chest wall: No suspicious bony lesions. Overlying soft tissues appear unremarkable. IMPRESSION: No acute cardiopulmonary abnormality is seen. MDM Narrative Medical decision making narrative: Chest x-ray shows no acute pathology. Her lipase and liver function tests are unremarkable. Will have her follow-up with her primary doctor on Wednesday as already scheduled for further evaluation of this. She does appear to have a draining abscess in her lower back/upper gluteal soft. There was no surrounding erythema. There is no induration. There was no indication for antibiotics. Will have her follow up with her primary doctor for this as well as she may need to see surgery for further evaluation. Will discharge patient home with reassurance. Discharge Plan Departure Patient Disposition: Home Clinical Impression: Bilateral upper abdominal pain, Draining cutaneous sinus tract Activity Restrictions/Additional Instructions: Your chest x-ray today is unremarkable when your labs are unremarkable. It does look like you have drainage of a sinus track when your lower back/upper buttocks area. This is most likely going to need a referral to see General surgery. I recommend that you keep your scheduled appointment with your primary doctor on Wednesday. Return to the emergency department for new symptoms. Prescriptions: No Action gabapentin 100 mg capsule 100 mg PO BEDTIME trazodone 100 mg tablet 100 mg BEDTIME clonazepam 1 mg tablet 2 mg PO TID 7 Days Qty: 21 0RF Stand Alone Forms: Patient Portal/API
[2023-09-03 22:10] LABS: Hematocrit 38.3 % (36-46); Hemoglobin 12.8 g/dL (12.0-16.0); Mean Corpuscular HGB Conc 33.5 % (30-36); Mean Corpuscular Hemoglobin 31.4 PG (26-34); Mean Corpuscular Volume 93.9 fL (80-100); Platelet Count 233 X10^3/uL (150-400); Red Blood Cell Count 4.07 X10^6/uL (4.0-5.2); Red Cell Distribution Width 13.8 % (11.6-14.8)
[2023-09-03 22:13] LABS: Add Manual Diff / Slide Review YES
[2023-09-03 22:16] LABS: HEMOLYSIS < 15 (0-50)
[2023-09-03 22:17] LABS: Alanine Aminotransferase 12 IU/L (<35); Albumin 3.8 g/dL (3.5-5.0); Albumin Globulin Ratio 1.4 (1.0-2.8); Alkaline Phosphatase 77 U/L (38-126); Aspartate Aminotransferase 25 IU/L (14-36); BUN Creatinine Ratio 15.9 (6-22); Bilirubin Total 0.4 mg/dL (0.2-1.3); Blood Urea Nitrogen 10 mg/dL (7-17); Carbon Dioxide 29 mmol/L (22-32); Chloride 97 mmol/L (98-107); Estimated Glomerular Filt Rate > 60 mL/min (>60); Globulin 2.8 g/dL (1.7-4.1); Glucose 90 mg/dL (80-110); Lipase 79 U/L (23-300); Sodium 132 mmol/L (137-145); Total Protein 6.6 g/dL (6.3-8.2)
[2023-09-03 22:23] LABS: Neutrophils Absolute Manual 3990 /uL (3000-5900); RBC Morphology Normal Morphology; Total Cells Counted 100
== END 2023-09-03 23:24 | disposition home or self-care (01) ==
PROVIDERS: Emergency Provider Emergency Medicine
DX: R10.12 Left upper quadrant pain (principal); R10.11 Right upper quadrant pain; L98.8 Other specified disorders of the skin and subcutaneous tissue; R07.81 Pleurodynia
CPT/HCPCS: 71045; 80053; 83690; 85007; 85025; 99281; 99284

== ENCOUNTER 2024-03-15 07:45 | Inpatient (IN) | payer MEDICARE, OTHER, MEDICAID, SELFPAY ==
[2022-05-09 03:30] VITALS: BMI 17.4
[2024-03-14] VITALS (9 sets, daily range): BP systolic 92–158; BP diastolic 49–77; PULSE 46–65; RESP 12–18; TEMP 36.3–37.2; O2SAT 92–97; BMI 18.1
--- NOTE | 2024-03-14 13:32 | PM.PREOP ---
Pre-operative Note COVID-19 COVID-19 status: Not tested Interval Note History & Physical reviewed/Exam performed by Physician: Yes Changes to H&P: No ASA Class (for procedural sedation): III
--- NOTE | 2024-03-14 13:35 | SUR.OPER ---
Prone on padded OR bed, head in foam head support, gel chest rolls, gel pad under knees, pillow under lower legs, toes free of pressure, arms secured on padded arm boards at <90 degrees abduction. Safety belt at thigh.
[2024-03-14] MEDS: LACTATED RINGERS 1,000 ML 42 ML IV (13:59)
[2024-03-14] MEDS: ACETAMINOPHEN 325 MG TABLET 975 MG PO (14:00)
[2024-03-14] MEDS: CEFAZOLIN 2 GM/100 ML PREMIX 100 ML IV (14:30)
[2024-03-14] MEDS: BUPIVACAINE 0.5% (PF) 30 ML, EPINEPHrine 0.15 MG INJ (14:39)
--- NOTE | 2024-03-14 14:49 | CM.SWNOTE ---
METAL FABRICATING INSPECTOR phone note Attempted multiple times to contact [facility] to inform them that pt is staying the night in the hospital tonight following her surgical debridement. Emailed the hr administrator this information, as the [facility] phone just hangs up instead of forwarding the call to a live person. Attempted to call her personal contacts, they both did not answer and did not have voicemail set up.
--- NOTE | 2024-03-14 15:17 | P.OP_ITS ---
Operative Date/Time/Diagnoses Date of procedure: 03/14/24 Time of procedure: 15:17 Pre-op diagnosis: Sacral decubitus ulcer Post-op diagnosis: same Procedure & Clinicians Procedure: Debridement of sacral decubitus ulcer Same procedure as scheduled: Yes Surgeon: Vinod Daniel Unemployment Examiner: Cameron Asif Anesthesia Type: General Operative Notes Procedure in detail: The patient is an 83-year-old woman with chronic diarrhea and incontinence, ma lnutrition and a nonhealing sacral decubitus wound. She was consented for debridement and negative pressure therapy. The patient was brought to the operating room, placed on the table in the supine position and general endotracheal anesthesia was induced. She was then positioned prone. The area was prepped with Betadine and draped. Time-out was performed. Initially there appeared to be a small wound over the tailbone. A blunt-tipped probe was inserted and it was noted that the wound tracked towards the right gluteal mass. We then unroofed the area of undermining. We continued to expose the undermined portions of the wound until it was completely unroofed. An ovoid wound was created measuring 5 cm x 4 cm x 1 cm in depth. The bone was not exposed. Granulation tissue was removed. We then trimmed a wound VAC sponge to fit within the wound and connected HER2 negative pressure therapy. We padded her skin with an additional piece of sponge under the wound VAC tubing which was run to the right. She was then awakened and brought to the recovery room. EBL: 10 mL Cameron JASMINE provided assistance with exposure, retraction and closure of incisions. Post-operative Condition: stable Disposition: PACU
[2024-03-14] MEDS: HYDROMORPHONE 2 MG INJ IV (15:23)
[2024-03-14] MEDS: clonazePAM 0.5 MG TABLET 2 MG PO (20:54)
[2024-03-15 03:30] VITALS: BP 147/67; PULSE 52; RESP 12; TEMP 36.4; O2SAT 97
[2024-03-15 06:25] LABS: Add Manual Diff / Slide Review NO; Basophils Absolute Auto 100 /uL (0-100); Basophils Percent Auto 1.4 % (0-2); Eosinophils Absolute Auto 0 /uL (0-450); Eosinophils Percent Auto 0.3 % (2-4); Hematocrit 38.3 % (36-46); Hemoglobin 12.9 g/dL (12.0-16.0); Lymphocytes Absolute Auto 2500 /uL (1100-4500); Lymphocytes Percent Auto 24.2 % (25-40); Mean Corpuscular HGB Conc 33.6 % (30-36); Mean Corpuscular Hemoglobin 31.6 PG (26-34); Monocytes Absolute Auto 1000 /uL (0-900); Neutrophils Absolute Auto 6600 /uL (1500-7000); Neutrophils Percent Auto 64.1 % (50-75); Platelet Count 238 X10^3/uL (150-400); Red Blood Cell Count 4.07 X10^6/uL (4.0-5.2); Red Cell Distribution Width 13.6 % (11.6-14.8); White Blood Cell Count 10.3 X10^3/uL (4.5-11.0)
[2024-03-15 06:36] LABS: Alanine Aminotransferase 10 IU/L (<35); Albumin 3.4 g/dL (3.5-5.0); Albumin Globulin Ratio 1.3 (1.0-2.8); Alkaline Phosphatase 81 U/L (38-126); Aspartate Aminotransferase 22 IU/L (14-36); BUN Creatinine Ratio 26.7 (6-22); Bilirubin Total 0.4 mg/dL (0.2-1.3); Blood Urea Nitrogen 27 mg/dL (7-17); Calcium 9.4 mg/dL (8.4-10.2); Carbon Dioxide 28 mmol/L (22-32); Chloride 105 mmol/L (98-107); Estimated Glomerular Filt Rate 55 mL/min (>60); Globulin 2.6 g/dL (1.7-4.1); Glucose 103 mg/dL (80-110); HEMOLYSIS < 15 (0-50); Magnesium 1.8 mg/dL (1.6-2.3); Phosphorous 4.2 mg/dL (2.8-4.1); Potassium 3.8 mmol/L (3.4-5.1); Sodium 138 mmol/L (137-145)
[2024-03-15 06:43] LABS: Prealbumin 17.4 mg/dL (17.6-36.0)
[2024-03-15 08:00] VITALS: BP 140/73; PULSE 75; RESP 16; TEMP 36.6; O2SAT 98
[2024-03-15] MEDS: CHOLECALCIFEROL (VITAMIN D3) 1,000 UNIT TABLET 1000 UNIT PO (08:23)
[2024-03-15] MEDS: ACETAMINOPHEN 325 MG TABLET 650 MG PO (08:24)
[2024-03-15] MEDS: GABAPENTIN 100 MG CAPSULE 200 MG PO (08:24)
[2024-03-15] MEDS: clonazePAM 0.5 MG TABLET 2 MG PO ×3 (08:24→21:05)
--- NOTE | 2024-03-15 10:58 | DIET.CONS ---
Dietary Consultation Note Admission Date: Assessment: 83 y F admitted for sacral decubitus wound. Nutrition consulted for malnutrition. Met with pt at bedside, reports weight loss over unknown period of time. Skips breakfast at [facility] d/t family stress. Reports frequent diarrhea occurring daily. Pt open to Karri and Ensure. Diet recall: for last month B- x L- v8 and cottage cheese and fruit D-saute chef salad w/ just turkey bits NFPE: severe muscle loss temporalis, deltoid, pectoralis, moderate subcutaneous fat loss buccal and orbital fat pads Ht: 162.56 cm Wt: 48.081 kg BMI: 18.1 UBW: 53.07 kg on 09/03/23 (-9.5% weight loss in 6 months, non-severe) Last BM: 03/14/24 (03/14/24 13:22) MNA: 9 Nathaniel Score: 17 Diet: 03/14/24 Dinner General (Regular) Diet Diet Modifications: Nutrition Percent Meal Consumed 100% 03/14/24 18:00 Labs: RBC 4.07 X10^6/uL (4.0-5.2) 03/15/24 05:54 Hgb 12.9 g/dL (12.0-16.0) 03/15/24 05:54 Hct 38.3 % (36-46) 03/15/24 05:54 Creatinine 1.01 mg/dL (0.52-1.04) 03/15/24 05:54 Nutrition Diagnosis: Severe acute Protein Calorie Malnutrition r/t increased nutrient needs (protein) in setting of wound healing as evidenced by severe muscle wasting (temporalis, deltoid, pectoralis), moderate subcutaneous fat loss (buccal and orbital fat pads), 9.5% weight loss in 6 months, <75% estimated energy needs for 4 weeks, sacral decubitus wound, BMI 18.1 (underweight for age) Interventions: 1. Karri BID 2. Ensure Enlive BID 3. Increased energy protein needs -discussed increased needs with patient, Karri, encouraged additional meal, reviewed protein sources EER: 1700 kcals (35 kcals/kg per BMI) 75 g protein (1.5 g/kg for wound) Monitoring/Evaluations: po intakes, Karri & ONS tolerance Electronically Signed by: Yudelka Jin 03/15/24 10:58 Clinical Diet[address] [place] [address]
[2024-03-15] MEDS: OXYCODONE IR 5 MG TABLET PO (12:05)
[2024-03-15] MEDS: NICOTINE 14 PATCH 14 MG TOP (12:08)
--- NOTE | 2024-03-15 12:40 | P.PN_ITS ---
Subjective Subjective Date Patient Seen: 03/15/24 Time Patient Seen: 12:40 Interval history: Gayle complains of some pain to her left gluteal area. Exam Vital Signs (past 8 hours): - 03/15/24 08:00 Temperature 97.8 F Pulse Rate 75 Respiratory Rate 16 Blood Pressure 140/73 Pulse Oximetry 98 Oxygen Delivery Method Room Air Oxygen Flow Rate 0 Const General: No acute distress Objective Labs 03/15/24 05:54 03/15/24 05:54 Labs: Laboratory Results - last 24 hr 03/15/24 05:54 WBC 10.3 RBC 4.07 Hgb 12.9 Hct 38.3 MCV 94.0 MCH 31.6 MCHC 33.6 RDW 13.6 Plt Count 238 Neut % (Auto) 64.1 Lymph % (Auto) 24.2 L [place] % (Auto) 10.0 Eos % (Auto) 0.3 L Baso % (Auto) 1.4 Neut # (Auto) 6600 Lymph # (Auto) 2500 [place] # (Auto) 1000 H Eos # (Auto) 0 Baso # (Auto) 100 Sodium 138 Potassium 3.8 Chloride 105 Carbon Dioxide 28 BUN 27 H Creatinine 1.01 Estimated GFR 55 L BUN/Creatinine Ratio 26.7 H Glucose 103 Calcium 9.4 Phosphorus 4.2 H Magnesium 1.8 Total Bilirubin 0.4 AST 22 ALT 10 Alkaline Phosphatase 81 Total Protein 6.0 L Albumin 3.4 L Globulin 2.6 Albumin/Globulin Ratio 1.3 Prealbumin 17.4 L PFSH Medical History (Updated 03/09/24 @ 14:43 by Krystina Boggs RN) HLD (hyperlipidemia) COPD (chronic obstructive pulmonary disease) Anxiety Surgical History (Updated 03/09/24 @ 14:40 by Krystina Boggs RN) History of hip surgery (05/09/22) Social History (Updated 02/23/24 @ 13:16 by Tonya Lockhart MA) marital status: unknown household members: other lives independently: No caregiver/support person: Yes housing: long term Smoking Status: Current every day smoker alcohol intake: never substance use type: does not use Assessment & Plan Assessment and plan (1) Sacral decubitus ulcer: Qualifiers: Pressure injury stage: unspecified pressure injury stage Qualified Code(s): L89.159 - Pressure ulcer of sacral region, unspecified stage Status: Acute Plan Given the size of her large chronic wound and the fact that she has fecal incontinence I recommend she have a wound VAC for few weeks. If we can not it approval from insurance then we will have the wound care people recommend alternative dressings that can be managed by her visiting nurses. I would like her to have a dietary consultation as well as physical and occupational therapy. I will also have a medical administrative technician consult because she seems to have very limited access to resources and will require a lot of assistance in order to get her wound healed. I advised her to quit smoking to help with wound healing. Time-Based Coding :: [TOTAL MINUTES] spent with patient and on the chart (including review of chart, obtaining history, exam, reviewing outside data, placing orders, documenting exam and treatment plan, and counseling patient) on [DATE].
--- NOTE | 2024-03-15 14:12 | OT.IPNOTE ---
Pt has wound vac after I and D of sacral wound. Waiting on clarification of weight bearing for pt and if okay get up or just for toileting needs,etc. Pt nurse to call and ask.
--- NOTE | 2024-03-15 14:46 | CM.DANOTE ---
Initial DCP Assessment Visit Note Reviewed EMR and team rounds for pt's medical status and updates. Pt resides at [facility], she is alert/oriented, very depressed re: her circumstances. Will need SNF Rehab with a wound vac. After rehab plan is to return to [facility]. Family are only minimally involved, don't like to be called about her, per [facility]. Wound Care Clinic is consulting for wound care instructions (Dr. Duff). PT eval pending. Dietary Consult today. Payor: Mathew VALENZUELA Adv Attending: Dr. Daniel Pt is a 83 year-old F post-op day 1 from a large sacral wound debridement completed by Dr. Daniel. This was a planned procedure, however when Dr. Daniel went into the OR, he found her wound to be much larger than he had anticipated. She will need a wound vac. Has been receiving Wound Care Clinic care for this wound for a year without any improvement. She does smoke, which she was encouraged to stop in order to help the wound healing process. She is also severely malnourished, which has been the primary barrier to her healing as well. Patient shared that her dtr sold her house, and placed her at [facility] for increased care needs. Her dtr also gave pt's dog to her son, which is a huge source of grief for her. SNF referral not yet placed, anticipate [facility] as the closest SNF that takes Mathew VALENZUELA. Need to coordinate OP wound vac. DCP will continue to follow and assist with all the above coordination needs. Mobility Scooter Repairer will meet with pt and provide emotional/coping support and counseling. Discharge Planning/Care Management CM Discharge Assessment Start: 03/15/24 14:31 Freq: Status: Active Protocol: Document 03/15/24 14:37 DPL (Rec: 03/15/24 14:42 DPL [id number]) Discharge Planning Assessment Assigned Internal Medicine Veterinary Technician PHILIPP Muhammad Advance Directives? No History Provided By Medical Record Expected Length of Stay 4 Has Patient been admitted in last 30 No days? Prior Living Arrangements Assisted Living Household Members other Type of transporation used prior to Relies on Others admit Facility Name Admitted From: Other Willing to Return to Facility? Yes Independent with ADL's No: dependent on assistance for care needs Is patient alert and oriented? Yes Needs Assistance With Bathing,Meal Prep,Toileting, Managing Medications,Home Chores / Shopping Caregiver for Another No Community Services used prior to Wound Care admission: DME Already Rented / Owned Bath Bench,Elevated Toilet Seat,FWW / Walker Patient/Family Preference Group Home Facility Barriers to Discharge No Comment Pt will d/c to [facility] for a few weeks with a wound vac, then return to [facility]. Discharge Plan Group Home Facility Transportation Arrangement Facility Referrals Initiated Other If patient plan is SNF: Has PASSR been No completed? SNF/HH Preference Possibly [facility] Has Agency SNF been contacted No Review Status In Process Please Provide Date Initial DC 03/15/24 Assessment Was Performed Pre-Anesthesia Assessment Start: 03/09/24 14:38 Freq: Status: Active Protocol: Document 03/09/24 14:39 CAB (Rec: 03/09/24 14:46 CAB [id number]) Pre-Anesthesia Assessment Patient Information Reviewed Via Chart Review Primary Care Provider [facility] Seen Specialist in Last 12 Months Yes Specialist Seen Emergency,General surgeon Primary Language Mauritian Preferred Language Mauritian Manager Medicaid Required No Anesthesia Review Requested No Telephone Operator Receptionist No alcohol intake former Smoking Status Current every day smoker Tobacco type cigarettes Substance Use Type does not use Pain Present Pain Reported Patient is completely paralyzed or No completely immobile Mental Status Oriented to own ability Hx Sleep Apnea No Currently Taking a Beta Yamileth No Cardiac Testing No Hx Pacemaker/ICD No Pacemaker Rep Required? No Cardiac Clearance Received No Gastrointestinal Symptoms Diarrhea Urinary Catheter Present No Hx Urinary Self Catheterization No Diabetes No Patient No Lactating No Received a COVID vaccine? Yes Marital Status / Lives With other Current Living Arrangements Skilled Nurse Facility Comment SNF on [facility] Patient Discharge Plan Description Group Home Facility/Rehab Do You Have Any Spiritual Beliefs That No May Affect Your HC Choices? Emergency Contact Name Simon lawson) Emergency Contact Advance Directives? No Power of Measurement Superintendent No
--- NOTE | 2024-03-15 15:52 | PT-IP ANOTE ---
Continuing to wait for clarification on activity orders due to wound vac s/p sacral debridement.
[2024-03-15] MEDS: HYDROCODONE/ACET 5/325 TABLET 1 TAB PO ×2 (16:08→21:04)
[2024-03-15 19:37] VITALS: BP 145/84; PULSE 57; RESP 12; TEMP 36.6; O2SAT 93
[2024-03-15] MEDS: TRAZODONE 50 MG TABLET 200 MG PO (21:04)
[2024-03-16 03:30] VITALS: BP 99/52; PULSE 52; RESP 12; TEMP 36.4; O2SAT 95
[2024-03-16] MEDS: HYDROCODONE/ACET 5/325 TABLET 1 TAB PO ×2 (05:59→20:53)
[2024-03-16 08:00] VITALS: BP 135/83; PULSE 87; RESP 16; TEMP 36.6; O2SAT 95
[2024-03-16] MEDS: NICOTINE 14 PATCH 14 MG TOP (08:38)
[2024-03-16] MEDS: clonazePAM 0.5 MG TABLET 2 MG PO ×3 (08:38→20:53)
[2024-03-16] MEDS: GABAPENTIN 100 MG CAPSULE 200 MG PO (08:38)
[2024-03-16] MEDS: CHOLECALCIFEROL (VITAMIN D3) 1,000 UNIT TABLET 1000 UNIT PO (08:38)
[2024-03-16] MEDS: SODIUM CHLORIDE 0.9% FLUSH 10 ML IV ×2 (08:39→21:11)
--- NOTE | 2024-03-16 09:49 | PT.IIE ---
Current Diagnoses Pressure ulcer of sacral region, unspecified stage (03/15/24) Surgery Performed Operation Date: 03/14/24 14:15 Actual Procedures p SACRAL WOUND DEBRIDEMENT and WOUND VAC PLACEMENT - Vinod Daniel MD Surgical History (Last Updated 03/09/24 @ 14:40 by Krystina Boggs, RN) History of hip surgery (05/09/22) Medical History (Last Updated 03/09/24 @ 14:43 by Krystina Boggs RN) Anxiety COPD (chronic obstructive pulmonary disease) HLD (hyperlipidemia) Physical Therapy Inpatient Evaluation/Re-Eval M1 PT/OT-IP Prior Functional Status Start: 03/16/24 08:07 Freq: NEEDED Status: Active Protocol: Document 03/16/24 08:31 MB (Rec: 03/16/24 09:49 MB [id number]) Medical Review Prior Functional Status Medical History Reviewed Yes Diet/Fluid Consistency Regular Communication WNLs Mobility and Gait Mod I with rollator Activities of Daily Living and IADL's Pt states that she has walk-in shower, stands in the shower, cleans toilet in her room and walks to dining room[place] [facility] [place] Social History Household Members other Living Arrangements Assisted Living Number of Stairs To Enter/Railing? Accessible entrance Home Environment High Toilet,Walk in Shower, Built-In Shower Seat Home Equipment Four Wheel Walker,Hand Held Shower,Grab Bars Near Toilet, Grab Bars In Shower Employment Status Retired M2 PT-IP Current Condition Start: 03/16/24 08:07 Freq: NEEDED Status: Active Protocol: Document 03/16/24 08:31 MB (Rec: 03/16/24 09:49 MB [id number]) Physical Therapy Current Condition Current Condition Evaluation Date 03/16/24 Treatment Diagnosis Debridement sacral wound, vac extends over right gluteal area M3 PT-IP Subjective Start: 03/16/24 08:07 Freq: NEEDED Status: Active Protocol: Document 03/16/24 08:31 MB (Rec: 03/16/24 09:49 MB [id number]) Subjective Physical Therapy Visit Type Type Initial Evaluation Visit Start Time 08:31 Visit Stop Time 08:58 Number of CHAIR MENDER Visits 0 Physical Therapy Visit Comments Patient Comments Pt is agreeable to mobility, resistant to lie on left side d/t increased right hip pain. Therapy Pain Assessment Pain When Pain Assessed During Mobility Pain Present Pain Present Pain Reported Location buttock Intensity 5 Scale Used Tigre (Faces) M4 PT-IP Mobility and Gait Start: 03/16/24 08:07 Freq: NEEDED Status: Active Protocol: Document 03/16/24 08:31 MB (Rec: 03/16/24 09:49 MB [id number]) PT-Bed Mobility Assessment Rolling Type of Rolling Roll to Left Level of Assist Minimal Assistance Supine to Sit Supine to Sit Moderate Assistance,1 Person Assistance,Head of Bed Elevated,Bedrails Sit to Supine Sit to Supine Moderate Assistance,1 Person Assistance,Head of Bed Elevated,Bedrails Scooting Scooting to Edge of Bed Minimal Assistance PT-Transfer Assessment Sit to and From Stand Sit to and from Stand Minimal Assistance,1 Person Assistance,Use of Upper Extremities Equipment Transfer Assistive Device Gait Belt,4 Wheeled Walker Orthotic/Prosthetic Devices or Brace: No Transfers Transfer Destination Bed Transfer Technique Ambulate around bed Transfer Ability Level of Assist Minimal Assistance,1 Person Assistance,Use of Upper Extremities Comments Mobility Comments Pt lying on back with pillow bridge underneath her upon arrival. Pt is reluctantly agreeable to PT and bed mobility performed to the left given wound vac to the right and PT is able to see that it is over right gluteal area. Pt occ reports right knee, right hip and wound area discomfort with bed mobility but does not c/o pain once up stepping. She requires mod A to move right leg to the left to get up to EOB and to get both legs back into the bed for sit to supine. Pt requires max A for pillow positioning for legs and to stay on left side after evaluation. Gait Assessment Gait Gait Assistance Required: Minimum Assistance Distance (Feet) 20 Able to Maintain Weight Bearing Status Yes During Gait Assistive Devices Assistive Device Gait Belt,4 Wheeled Walker Orthotic/Prosthetic Devices or Brace: No Gait Deviations General Gait Pattern Antalgic,Decreased Stride Length,Decreased Feet Clearance,Flexed Trunk,Narrow Based Gait,Step-to Gait Factors Limiting Gait Function Factors Limiting Gait Function Decreased Activity Tolerance, Decreased Strength, Incoordination,Limited Range of Motion,Pain,Poor Balance, Poor Safety Awareness Comments Gait Comments Pt states that she has toe WB through right foot for one year since her right hip fracture. She demonstrates step-to gait with right and then left foot with weight on toes of right foot with increased tension in right PFs and heel off the ground. PT places wound vac on rollator for gait trial and pt states she prefers rollator to RW for gait. PT-Balance Assessment Sitting Balance and Reactions Static Sitting Balance Ability Fair Dynamic Sitting Balance Ability Fair Standing Balance and Reactions Static Standing Balance Ability Fair Dynamic Standing Balance Ability Fair Device Used Rollator M5 PT-IP Objective Assessments Start: 03/16/24 08:07 Freq: NEEDED Status: Active Protocol: Document 03/16/24 08:31 MB (Rec: 03/16/24 09:49 MB [id number]) Orientation Orientation/Cognition Level of Alertness Alert Orientation Name,Age,Birthday,Year, Situation Language Function Ability Hard of Hearing Safety Awareness Decreased Safety Awareness Memory Description Short Term Impaired,Nursing Home Impaired Comments Pt is not very descriptive Gross Range of Motion Upper Extremity ROM Impairments Defer to OT Lower Extremity ROM Assessment Right Impaired Impairments Edema lateral right hip and pt self-limits range and PFs are very tight/shortened functionally with gait: pt states she has been toe walking since hip surgery a year ago. Strength Lower Extremity Strength Assessment Right Impaired Muscle Tone Muscle Tone WNL No Other Assessments Other Other Assessments Increased tone right PFs M6 PT-IP Treatment Start: 03/16/24 08:07 Freq: NEEDED Status: Active Protocol: Document 03/16/24 08:31 MB (Rec: 03/16/24 09:49 MB [id number]) Physical Therapy Treatment Education Education Provided Safety Other Treatments Other Treatment Performed Ed pt that she needs to lie on left side to unweight sacral wound, defer to surgeon about sitting time and PT does not feel comfortable leaving pt sitting d/t wound M7 PT-IP Assessment and Plan Start: 03/16/24 08:07 Freq: NEEDED Status: Active Protocol: Document 03/16/24 08:31 MB (Rec: 03/16/24 09:49 MB [id number]) PT Summary Assessment and Plan Potential Rehabilitation Potential Fair Status of Condition at Evaluation Evolving Summary Impairments Pain,ROM,Strength,Balance, Coordination,Sensation, Cognition,Bed Mobility, Transfers,Gait,Activity Tolerance Progress Towards Goals Progressing Toward Goals Assessment Summary Pt is an 83 y/o female presenting with right sided wound, hip and leg pain with mobility, mostly bed mobility and with left side lying. Pt requires min to mod A for bed mobility, transfers, and gait around the bed. Pt presents with toe walking pattern on right foot that she states she has performed since hip fracture last year. Overall, good effort with PT and pt may benefit from SNF level of PT at d/c. She states she was pretty I at baseline with 4WRW . Goals Bed Mobility Goal Independent Transfer Goal Independent,Four Wheeled Walker Gait Goal Independent,Four Wheel Walker Gait Distance 100 Days to Meet Goals 5 Frequency of Treatment Frequency Of Treatment Once a Day Treatment Plan Physical Therapy Treatment Plan Bed Mobility Training,Transfer Training,Gait Training, Therapeutic Exercise,Balance Retraining,Discharge Planning, Hot or Cold Pack,Neuromuscular Re-ed,Coordination Retraining ,Manual Therapy Precautions Other Precautions Sacral wound, left side lying Weight Bearing Status Allowed Weight Bearing Amount (enter % No restrictions noted in chart or #) (%) Recommendations To Nursing Amount of Assist Needed 2 Person Assist Discharge Recommendations PT Discharge Recommendations SNF Rehab Transportation Needs at Discharge Wheelchair/Cabulance
[2024-03-16] MEDS: OXYCODONE IR 5 MG TABLET PO (11:14)
[2024-03-16] MEDS: ACETAMINOPHEN 325 MG TABLET 650 MG PO (11:15)
--- NOTE | 2024-03-16 12:17 | CM.DPNOTE ---
Addendum entered by Ana EscalonaPHILIPP 03/18/24 15:27: ADD: [facility] cannot accept patient likely until Wed next , SNF auth can be started Wednesday. Sent referral to Sharon at [facility] because they accept patient's insurance. [facility] declines related to patient's wound care and wound vac needs. At this time, [facility] is the facility that accepts patient's insurance, has accepted patient and is located near patient's [facility]. Provider updated. CM team following closely for coordination efforts. Original Note: DCP Cont Reviewed chart. Spoke with Dr Daniel who feels SNF level of care would give patient the best opportunity for healing. Patient needs wound vac at [facility], wound care, PT/OT and nutrition support. Met w/patient to review plan. Patient concerned that her bed at [facility] will be given away. Explained that this is unlikely. Offered to discuss this with [facility] and patient appreciative. Patient agreeable to SNF stay and requests discharge to [facility]. Patient discusses her concerns about daughter Ana; tells this COMMUNICATIONS SPECIALIST that Ana has her debit card and that she is using it for her own needs. Patient reports that she was tricked into signing a bunch of papers at the [employer] and now Ana has access to her funds. APS report made summarizing above concerns. Online Report Confirmation Number: [id number] Reported By: Ana Escalona Date/Time Submitted: 03/16/2024 12:16 PM. [address] call to [facility] P [phone]; multiple attempts this morning made to connect with a human which were unsuccessful. Phone system hangs up on the caller. Placed call to Ana at [facility]. Reviewed referral. VINCENZO Pulliam, has kindly agreed to send this referral to Ana. Patient has been to [facility] in the past and Ana thinks they can accommodate patient's needs. [facility] is contracted with [employer]. Ana plans to review referral today or tomorrow morning and hopeful to start auth request by tomorrow. Plan: Discharge anticipated to [facility] via wheelchair vs BLS transport; pending acceptance at [facility] and [facility] auth. CM team following closely for coordination of DCP. PHILIPP Garcia
--- NOTE | 2024-03-16 15:07 | OT.IP.EVAL ---
Current Diagnoses Pressure ulcer of sacral region, unspecified stage (03/15/24) Surgery Performed Operation Date: 03/14/24 14:15 Actual Procedures p SACRAL WOUND DEBRIDEMENT and WOUND VAC PLACEMENT - Vinod Daniel MD Past Medical History (Last Updated 03/09/24 @ 14:43 by Krystina Boggs, RN) Anxiety COPD (chronic obstructive pulmonary disease) HLD (hyperlipidemia) Surgical History (Last Updated 03/09/24 @ 14:40 by Krystina Boggs RN) History of hip surgery (05/09/22) Occupational Therapy Inpatient Evaluation/Re-Eval M1 PT/OT-IP Prior Functional Status Start: 03/16/24 08:07 Freq: NEEDED Status: Active Protocol: Document 03/16/24 13:10 [facility] (Rec: 03/16/24 14:30 [facility] [id number]) Medical Review Prior Functional Status Medical History Reviewed Yes Diet/Fluid Consistency Regular Communication WNLs Mobility and Gait Mod I with rollator Activities of Daily Living and IADL's Pt states that she has walk-in shower, stands in the shower, cleans toilet in her room and walks to dining room. [place] [facility] [place] give [place]s at facility. Pt states does her own ADL needs. Social History Household Members other Living Arrangements Assisted Living Number of Stairs To Enter/Railing? Accessible entrance Home Environment High Toilet,Walk in Shower, Built-In Shower Seat Home Equipment Four Wheel Walker,Hand Held Shower,Grab Bars Near Toilet, Grab Bars In Shower Employment Status Retired M2 OT-IP Current Condition Start: 03/16/24 14:12 Freq: Status: Active Protocol: Document 03/16/24 13:10 [facility] (Rec: 03/16/24 14:30 [facility] [id number]) Occupational Therapy Current Condition Current Condition Evaluation Date 03/16/24 Treatment Diagnosis Debridement of sacral wound Diagnosis Onset Date 03/14/24 M3 OT- IP Subjective and Pain Start: 03/16/24 14:12 Freq: Status: Active Protocol: Document 03/16/24 13:10 [facility] (Rec: 03/16/24 14:30 [facility] [id number]) OT- Subjective Occupational Therapy Visit Type Type Initial Evaluation Visit Start Time 13:20 Visit Stop Time 14:10 Occupational Therapy Visit Comments Patient Comments Pt agreed to get up to try to use the BSC. Patient/Caregiver Goals TO get better. OT Pain Assessment Pain When Pain Assessed At Rest Pain Present Pain Present Pain Reported Location buttock Intensity 1 Scale Used Numeric (0 - 10) M4 OT- IP ADL's Start: 03/16/24 14:12 Freq: Status: Active Protocol: Document 03/16/24 13:10 [facility] (Rec: 03/16/24 14:30 [facility] [id number]) OT [id number] Comments OT Self-Feeding Comments Not at meal time. OT ADL-Grooming General Evaluation Grooming Ability Standby Assistance Areas Needing Assistance Retrieving/Set-up of Grooming Items Comments OT Grooming Comments Able to do while seated on the edge of the bed. OT ADL-Oral Care General Eval Oral Care Ability Independent OT ADL-Dressing General Eval Lower Body Dressing Ability Moderate Assistance Comments OT Dressing Comments Pt not wanting to wear socks. Pt needing for brief management needs. OT ADL-Toileting General Evaluation Toileting Ability Moderate Assistance Areas Needing Assistance Manage Clothing Comments OT Toileting Comments Assist for brief management. Pt requesting to have Miralax from nursing. OT ADL-Bathing Comments OT Bathing Comments Not performed and best to have assist. M5 OT- IP IADL's Start: 03/16/24 14:12 Freq: Status: Active Protocol: Document 03/16/24 13:10 [facility] (Rec: 03/16/24 14:30 [facility] [id number]) OT-Instrumental Activities of Daily Living Deficits IADL Deficits Identified Deficits Home Safety Awareness Home Safety Comments Pt realizes will need assist for needs at this time. Medication Management Medication Management Caregiver Administers Meal Preparation Meal Preparation Caregiver Provides Assist Roof Foreman Roof Foreman Caregiver Provides Assist M6 OT- IP Functional Cognition Start: 03/16/24 14:12 Freq: Status: Active Protocol: Document 03/16/24 13:10 [facility] (Rec: 03/16/24 14:30 [facility] [id number]) Cognitive Factors Limiting Selfcare Function Cognitive Ability Level of Alertness Alert Patient Orientation Name,Place,Situation Attention Span Ability Capable of Focused Attention, Capable of Sustained Attention Ability to Follow Commands Able to Follow One Step Commands with Increased Time, Able to Follow One Step Commands with Repetition Memory Description Short Term Impaired Cognitive Comments Cognitive Assessment Comments Pt is very forgetful and vc for safety awareness to push up from the bed to stand versus 4ww.. At this time best to use the fww or staff/ therapist will have to guide the 4ww from rolling too fast for the pt. Pt prefers to use the 4ww. OT- Vision and Hearing OT- Vision Assessment Vision Assessment Comments Pt is blind in her left eye. M7 OT- IP Mobility and Balance Start: 03/16/24 14:12 Freq: Status: Active Protocol: Document 03/16/24 13:10 [facility] (Rec: 03/16/24 14:30 [facility] [id number]) OT- Bed Mobility Assessment Supine to Sit Supine to Sit Assist Moderate Assistance Sit to Supine Sit to Supine Assist Moderate Assistance Scooting Scooting to Edge of Bed Contact Guard Assistance OT-Transfer Assessment Sit to and From Stand Sit to and from Stand Minimal Assistance Transfers Transfer Ability Moderate Assistance Technique Transfer Destination Bed,Bedside Commode Transfer Technique Stand Step Pivot Devices Transfer Assistive Devices Gait Belt,Front Wheeled Walker Comments Mobility Comments MODA to assist with his right leg to get to the edge of the bed and back in. MEME to stand to 4WW and MODA for balance and to help steady the 4WW. Fww will be much steadier to use but pt insisting on use of 4ww and also used to carry her wound vac. OT- Balance Assessment Sitting Balance and Reactions Static Sitting Balance Ability Fair Dynamic Sitting Balance Ability Fair Standing Balance and Reactions Static Standing Balance Ability Fair Dynamic Standing Balance Ability Poor M8 OT- IP Objective Assessments Start: 03/16/24 14:12 Freq: Status: Active Protocol: Document 03/16/24 13:10 [facility] (Rec: 03/16/24 14:30 [facility] [id number]) OT Gross Range of Motion Upper Extremity Range of Motion Assessment Bilaterally Impaired ROM Impairments Arthritic hands and sway into ulnar deviation L>R hand. OT Strength Upper Extremity Strength Assessment Bilaterally Impaired OT- Coordination Assessment Upper Extremity Finger to Nose Test Right UE Impaired Comments Coordination Comments Off with right hand. M9 OT- IP Assessment and Plan Start: 03/16/24 14:12 Freq: Status: Active Protocol: Document 03/16/24 13:10 [facility] (Rec: 03/16/24 14:30 [facility] [id number]) OT Summary Assessment and Plan Potential Rehabilitation Potential Good Analytic Complexity at Evaluation High Summary OT Impairments Pain,Range of Motion,Strength, Balance,Coordination, Functional Cognition, Functional Mobility,Self- Feeding,Grooming,Dressing, Toileting,Bathing,Toilet Transfers,Shower Transfers, Activity Tolerance Progress Towards Goals Progressing Toward Goals,Slow Progress due to Medical Issues ,Slow Progress due to Activity Tolerance,Slow Progress due to Cognition Assessment Summary Pt high complexity and main barriers are decreased balance , STM,and needing one person assist for all needs at this time. Pt would greatly benefit from skilled rehab to wound care needs and help pt to get back to prior level of MOD I with all mobility and ADL needs. Goals pt to be BART for all ADL and mobility needs with 4ww. Pt to be able to complete goals in 20 days and be seen 5x/week. Pt to go to skilled rehab when medically stable.
--- NOTE | 2024-03-16 15:10 | OT.IP.EVAL ---
Current Diagnoses Pressure ulcer of sacral region, unspecified stage (03/15/24) Surgery Performed Operation Date: 03/14/24 14:15 Actual Procedures p SACRAL WOUND DEBRIDEMENT and WOUND VAC PLACEMENT - Vinod Daniel MD Past Medical History (Last Updated 03/09/24 @ 14:43 by Krystina Boggs, RN) Anxiety COPD (chronic obstructive pulmonary disease) HLD (hyperlipidemia) Surgical History (Last Updated 03/09/24 @ 14:40 by Krystina Boggs RN) History of hip surgery (05/09/22) Occupational Therapy Inpatient Evaluation/Re-Eval M1 PT/OT-IP Prior Functional Status Start: 03/16/24 08:07 Freq: NEEDED Status: Active Protocol: Document 03/16/24 13:10 [facility] (Rec: 03/16/24 14:30 [facility] [id number]) Medical Review Prior Functional Status Medical History Reviewed Yes Diet/Fluid Consistency Regular Communication WNLs Mobility and Gait Mod I with rollator Activities of Daily Living and IADL's Pt states that she has walk-in shower, stands in the shower, cleans toilet in her room and walks to dining room. [place] [facility] [place] at facility. Pt states does her own ADL needs. Social History Household Members other Living Arrangements Assisted Living Number of Stairs To Enter/Railing? Accessible entrance Home Environment High Toilet,Walk in Shower, Built-In Shower Seat Home Equipment Four Wheel Walker,Hand Held Shower,Grab Bars Near Toilet, Grab Bars In Shower Employment Status Retired M2 OT-IP Current Condition Start: 03/16/24 14:12 Freq: Status: Active Protocol: Document 03/16/24 13:10 [facility] (Rec: 03/16/24 14:30 [facility] [id number]) Occupational Therapy Current Condition Current Condition Evaluation Date 03/16/24 Treatment Diagnosis Debridement of sacral wound Diagnosis Onset Date 03/14/24 M3 OT- IP Subjective and Pain Start: 03/16/24 14:12 Freq: Status: Active Protocol: Document 03/16/24 13:10 [facility] (Rec: 03/16/24 14:30 [facility] [id number]) OT- Subjective Occupational Therapy Visit Type Type Initial Evaluation Visit Start Time 13:20 Visit Stop Time 14:10 Occupational Therapy Visit Comments Patient Comments Pt agreed to get up to try to use the BSC. Patient/Caregiver Goals TO get better. OT Pain Assessment Pain When Pain Assessed At Rest Pain Present Pain Present Pain Reported Location buttock Intensity 1 Scale Used Numeric (0 - 10) M4 OT- IP ADL's Start: 03/16/24 14:12 Freq: Status: Active Protocol: Document 03/16/24 13:10 [facility] (Rec: 03/16/24 14:30 [facility] [id number]) OT [id number] Comments OT Self-Feeding Comments Not at meal time. OT ADL-Grooming General Evaluation Grooming Ability Standby Assistance Areas Needing Assistance Retrieving/Set-up of Grooming Items Comments OT Grooming Comments Able to do while seated on the edge of the bed. OT ADL-Oral Care General Eval Oral Care Ability Independent OT ADL-Dressing General Eval Lower Body Dressing Ability Moderate Assistance Comments OT Dressing Comments Pt not wanting to wear socks. Pt needing for brief management needs. OT ADL-Toileting General Evaluation Toileting Ability Moderate Assistance Areas Needing Assistance Manage Clothing Comments OT Toileting Comments Assist for brief management. Pt requesting to have Miralax from nursing. OT ADL-Bathing Comments OT Bathing Comments Not performed and best to have assist. M5 OT- IP IADL's Start: 03/16/24 14:12 Freq: Status: Active Protocol: Document 03/16/24 13:10 [facility] (Rec: 03/16/24 14:30 [facility] [id number]) OT-Instrumental Activities of Daily Living Deficits IADL Deficits Identified Deficits Home Safety Awareness Home Safety Comments Pt realizes will need assist for needs at this time. Medication Management Medication Management Caregiver Administers Meal Preparation Meal Preparation Caregiver Provides Assist Coating And Baking Operator Coating And Baking Operator Caregiver Provides Assist M6 OT- IP Functional Cognition Start: 03/16/24 14:12 Freq: Status: Active Protocol: Document 03/16/24 13:10 [facility] (Rec: 03/16/24 14:30 [facility] [id number]) Cognitive Factors Limiting Selfcare Function Cognitive Ability Level of Alertness Alert Patient Orientation Name,Place,Situation Attention Span Ability Capable of Focused Attention, Capable of Sustained Attention Ability to Follow Commands Able to Follow One Step Commands with Increased Time, Able to Follow One Step Commands with Repetition Memory Description Short Term Impaired Cognitive Comments Cognitive Assessment Comments Pt is very forgetful and vc for safety awareness to push up from the bed to stand versus 4ww.. At this time best to use the fww or staff/ therapist will have to guide the 4ww from rolling too fast for the pt. Pt prefers to use the 4ww. OT- Vision and Hearing OT- Vision Assessment Vision Assessment Comments Pt is blind in her left eye. M7 OT- IP Mobility and Balance Start: 03/16/24 14:12 Freq: Status: Active Protocol: Document 03/16/24 13:10 [facility] (Rec: 03/16/24 14:30 [facility] [id number]) OT- Bed Mobility Assessment Supine to Sit Supine to Sit Assist Moderate Assistance Sit to Supine Sit to Supine Assist Moderate Assistance Scooting Scooting to Edge of Bed Contact Guard Assistance OT-Transfer Assessment Sit to and From Stand Sit to and from Stand Minimal Assistance Transfers Transfer Ability Moderate Assistance Technique Transfer Destination Bed,Bedside Commode Transfer Technique Stand Step Pivot Devices Transfer Assistive Devices Gait Belt,Front Wheeled Walker Comments Mobility Comments MODA to assist with his right leg to get to the edge of the bed and back in. MEME to stand to 4WW and MODA for balance and to help steady the 4WW. Fww will be much steadier to use but pt insisting on use of 4ww and also used to carry her wound vac. OT- Balance Assessment Sitting Balance and Reactions Static Sitting Balance Ability Fair Dynamic Sitting Balance Ability Fair Standing Balance and Reactions Static Standing Balance Ability Fair Dynamic Standing Balance Ability Poor M8 OT- IP Objective Assessments Start: 03/16/24 14:12 Freq: Status: Active Protocol: Document 03/16/24 13:10 [facility] (Rec: 03/16/24 14:30 [facility] [id number]) OT Gross Range of Motion Upper Extremity Range of Motion Assessment Bilaterally Impaired ROM Impairments Arthritic hands and sway into ulnar deviation L>R hand. OT Strength Upper Extremity Strength Assessment Bilaterally Impaired OT- Coordination Assessment Upper Extremity Finger to Nose Test Right UE Impaired Comments Coordination Comments Off with right hand. M9 OT- IP Assessment and Plan Start: 03/16/24 14:12 Freq: Status: Active Protocol: Document 03/16/24 13:10 [facility] (Rec: 03/16/24 15:14 [facility] [id number]) OT Summary Assessment and Plan Summary Assessment Summary Pt high complexity and main barriers are pain, decreased balance, STM, and needing one person assist for ADL and mobility needs. Prior pt was [facility] with all needs. Pt will greatly benefit from skilled rehab for wound care needs and get back to prior level fo BART with all needs. Goals Self-Feeding Goal Independent Grooming Goal Independent Dressing Goal Independent Toileting Goal Independent Bathing Goal Independent Toilet Transfer Goal Independent Shower Transfer Goal Independent Days to Meet Goals 20 Frequency of Treatment Other frequency 5x/week Treatment Plan OT Treatment Plan ADL Training,Functional Cognition Training,Functional Mobility,Patient/Family Education,Discharge Planning Discharge Recommendations OT Discharge Recommendations SNF Rehab Transportation Needs at Discharge Wheelchair/Cabulance
--- NOTE | 2024-03-16 16:09 | PM.PN.1 ---
Subjective Subjective Date Patient Seen: 03/16/24 Time Patient Seen: 16:09 Interval history: Doing well today Complains of some sacral and right gluteal pain Exam Vital Signs (past 8 hours): Oxygen Delivery Method Room Air Oxygen Flow Rate 0 Narrative Exam Narrative: Wound VAC was changed at bedside Wound bed appears healthy with no purulence or drainage The wound dimensions remain a proximally 5 cm by 4 cm x 1 cm No cellulitis around Objective Labs 03/15/24 05:54 03/15/24 05:54 PFSH Medical History (Updated 03/09/24 @ 14:43 by Krystina Boggs RN) HLD (hyperlipidemia) COPD (chronic obstructive pulmonary disease) Anxiety Surgical History (Updated 03/09/24 @ 14:40 by Krystina Boggs RN) History of hip surgery (05/09/22) Social History (Updated 02/23/24 @ 13:16 by Tonya Lockhart MA) marital status: unknown household members: other lives independently: No caregiver/support person: Yes housing: alf Smoking Status: Current every day smoker alcohol intake: never substance use type: does not use Assessment & Plan Assessment and plan (1) Sacral decubitus ulcer: Qualifiers: Pressure injury stage: unspecified pressure injury stage Qualified Code(s): L89.159 - Pressure ulcer of sacral region, unspecified stage Status: Acute Plan The patient has protein calorie malnutrition based on BMI, history of weight loss and temporal wasting. A high protein, high fiber diet has been recommended We discussed the need to increase dietary fiber prevent constipation and avoid laxatives as she has been swinging wildly between constipation and diarrhea because of her dependence on laxatives. The wound VAC was changed at bedside today with no problems. It should be relatively easy to perform wound VAC changes at the [facility] facility. When the wound size decreases the wound VAC can be stopped and another form of dressings can be utilized. Plan is to discharge to a [place] [facility] facility when a bed is available. Time-Based Coding :: [TOTAL MINUTES] spent with patient and on the chart (including review of chart, obtaining history, exam, reviewing outside data, placing orders, documenting exam and treatment plan, and counseling patient) on [DATE].
[2024-03-16] MEDS: HYDROMORPHONE 0.5 MG INJ 0.4 MG IV (16:35)
[2024-03-16 20:36] VITALS: BP 150/71; PULSE 62; RESP 18; TEMP 36.7; O2SAT 93
[2024-03-16] MEDS: TRAZODONE 50 MG TABLET 200 MG PO (20:53)
[2024-03-17 07:00] VITALS: BP 125/69; PULSE 68; RESP 16; TEMP 36.3; O2SAT 95
[2024-03-17] MEDS: OXYCODONE IR 5 MG TABLET PO (08:34)
[2024-03-17] MEDS: GABAPENTIN 100 MG CAPSULE 200 MG PO (08:35)
[2024-03-17] MEDS: clonazePAM 0.5 MG TABLET 2 MG PO ×3 (08:35→22:28)
[2024-03-17] MEDS: CHOLECALCIFEROL (VITAMIN D3) 1,000 UNIT TABLET 1000 UNIT PO (08:35)
[2024-03-17] MEDS: SODIUM CHLORIDE 0.9% FLUSH 10 ML IV ×2 (08:40→21:30)
[2024-03-17] MEDS: NICOTINE 14 PATCH 14 MG TOP (08:40)
[2024-03-17] MEDS: PSYLLIUM HUSK 1 PACKET PO (08:49)
--- NOTE | 2024-03-17 09:31 | DIET.PN1 ---
Dietary Progress Note Assessment: F/u with pt. Pt tolerating some Karri and ONS. Provided handout on fibrous foods and reviewed to reinforce surgery's recs for need to increase dietary fiber. Encouraged adequate intake as tolerated and ONS as snack. Will trial modifying juice Karri is provided for better flavor. Nutrition Diagnosis: Severe acute Protein Calorie Malnutrition r/t increased nutrient needs (protein) in setting of wound healing as evidenced by severe muscle wasting (temporalis, deltoid, pectoralis), moderate subcutaneous fat loss (buccal and orbital fat pads), 9.5% weight loss in 6 months, <75% estimated energy needs for 4 weeks, sacral decubitus wound, BMI 18.1 (underweight for age) Interventions: Current recommended nutrition plan: 1. Karri BID 2. Ensure BID 3. Educ on fiber needs (21 g/d) and sources Monitoring/Evaluations: po intakes, weight Ht: 162.56 cm Wt: 51.5 kg Last BM: 03/14/24 (03/14/24 13:22) MNA: 9 Nathaniel Score: 15 Diet: 03/14/24 Dinner General (Regular) Diet Diet Modifications: Nutrition Percent Meal Consumed 25% 03/16/24 18:00 Percent Meal Consumed 100% 03/16/24 13:00 Percent Meal Consumed 50% 03/15/24 18:00 Percent Meal Consumed 50% 03/15/24 14:00 Labs: RBC 4.07 X10^6/uL (4.0-5.2) 03/15/24 05:54 Hgb 12.9 g/dL (12.0-16.0) 03/15/24 05:54 Hct 38.3 % (36-46) 03/15/24 05:54 Creatinine 1.01 mg/dL (0.52-1.04) 03/15/24 05:54 Electronically Signed by: Yudelka Jin 03/17/24 09:31 Clinical Dietitian [address] [address]
--- NOTE | 2024-03-17 11:20 | PT.IPTN ---
Current Diagnoses Pressure ulcer of sacral region, unspecified stage (03/15/24) Surgery Performed Operation Date: 03/14/24 14:15 Actual Procedures p SACRAL WOUND DEBRIDEMENT and WOUND VAC PLACEMENT - Vinod Daniel MD Physical Therapy Treatment Note M2 PT-IP Current Condition Start: 03/16/24 08:07 Freq: NEEDED Status: Active Protocol: Document 03/16/24 08:31 [facility] (Rec: 03/16/24 09:49 [facility] [id number]) Physical Therapy Current Condition Current Condition Evaluation Date 03/16/24 Treatment Diagnosis Debridement sacral wound, vac extends over right gluteal area M3 PT-IP Subjective Start: 03/16/24 08:07 Freq: NEEDED Status: Active Protocol: Document 03/17/24 11:20 [facility] (Rec: 03/17/24 12:27 [facility] [id number]) Subjective Physical Therapy Visit Type Type Treatment Note Visit Start Time 11:20 Visit Stop Time 12:00 Number of STOVE INSTALLER Visits 0 Physical Therapy Visit Comments Patient Comments agreeable to do PT Therapy Pain Assessment Pain When Pain Assessed At Rest Pain Present Pain Present Pain Reported Location buttock Scale Used c/o soreness buttocks; pain scale not stated Pain Management Techniques Modification of Treatment,Re- positioning,Timing of Activity with Medications M4 PT-IP Mobility and Gait Start: 03/16/24 08:07 Freq: NEEDED Status: Active Protocol: Document 03/17/24 11:20 [facility] (Rec: 03/17/24 12:27 [facility] [id number]) PT-Bed Mobility Assessment Supine to Sit Supine to Sit Maximum Assistance,Head of Bed Elevated,Bedrails PT-Transfer Assessment Sit to and From Stand Sit to and from Stand Minimal Assistance,Moderate Assistance,Maximum Assistance, 1 Person Assistance,Use of Upper Extremities Equipment Transfer Assistive Device Gait Belt,Front Wheeled Walker ,4 Wheeled Walker Orthotic/Prosthetic Devices or Brace: No Transfers Transfer Destination Chair,Toilet Transfer Technique ambulated Transfer Ability Level of Assist Moderate Assistance,Maximum Assistance,1 Person Assistance ,Use of Upper Extremities Comments Mobility Comments pt supine in bed and agreeable to do PT. pt requesting to use the toilet. completed supine to sit max A and max cues. HOB elevated and use of bed rail to assist. pt completed sit to stand min A and cues . pt prefers using a 4WW and ambulated requiring mod A and max cues to the toilet. presents with unsteady antalgic gait with decrease step width and length . pt presents with increase lateral trunk lean to the L and tends to walk on R toes and RLE increase ER. pt required max A for sit to stand from the toilet and needs assist for hygiene care/ brief management. pt ambulated from the toilet to the chair using FWW min A and cues. pt sat on the chair. positioned pt on the chair. call light and table placed within reach. informef pt regarding use of FWW at this time for safety and steadiness and pt agreed. Gait Assessment Gait Gait Assistance Required: Minimum Assistance,Moderate Assistance Distance (Feet) 20 Able to Maintain Weight Bearing Status Yes During Gait Assistive Devices Assistive Device Gait Belt,Front Wheeled Walker ,4 Wheeled Walker Orthotic/Prosthetic Devices or Brace: No Gait Deviations General Gait Pattern Antalgic,Decreased Stride Length,Decreased Feet Clearance,Flexed Trunk,Lateral Trunk Lean Factors Limiting Gait Function Factors Limiting Gait Function Decreased Activity Tolerance, Decreased Strength,Limited Range of Motion,Pain,Poor Balance,Poor Safety Awareness M5 PT-IP Objective Assessments Start: 03/16/24 08:07 Freq: NEEDED Status: Active Protocol: Document 03/16/24 08:31 [facility] (Rec: 03/16/24 09:49 [facility] [id number]) Orientation Orientation/Cognition Level of Alertness Alert Orientation Name,Age,Birthday,Year, Situation Language Function Ability Hard of Hearing Safety Awareness Decreased Safety Awareness Memory Description Short Term Impaired,Security Business Analyst Impaired Comments Pt is not very descriptive Gross Range of Motion Upper Extremity ROM Impairments Defer to OT Lower Extremity ROM Assessment Right Impaired Impairments Edema lateral right hip and pt self-limits range and PFs are very tight/shortened functionally with gait: pt states she has been toe walking since hip surgery a year ago. Strength Lower Extremity Strength Assessment Right Impaired Muscle Tone Muscle Tone WNL No Other Assessments Other Other Assessments Increased tone right PFs M6 PT-IP Treatment Start: 03/16/24 08:07 Freq: NEEDED Status: Active Protocol: Document 03/17/24 11:20 [facility] (Rec: 03/17/24 12:27 [facility] [id number]) Physical Therapy Treatment Education Education Provided Safety M7 PT-IP Assessment and Plan Start: 03/16/24 08:07 Freq: NEEDED Status: Active Protocol: Document 03/17/24 11:20 [facility] (Rec: 03/17/24 12:27 [facility] [id number]) PT Summary Assessment and Plan Potential Rehabilitation Potential Fair Summary Impairments Pain,ROM,Strength,Balance, Coordination,Sensation,Tone, Cognition,Bed Mobility, Transfers,Gait,Activity Tolerance Progress Towards Goals Slow Progress due to Medical Issues,Slow Progress due to Activity Tolerance Assessment Summary pt requiring max A for bed mobility, mod to max for sit to stand and able to ambulate using FWW min A but required mod A with 4WW. pt agreed to use FWW at this time. pt will require SNF rehab to improve overall strength and mobility. Goals Bed Mobility Goal Independent Transfer Goal Independent,Front Wheeled Walker Gait Goal Independent,Front Wheel Walker Gait Distance 100 Other Goals improve transfers and ambualtion using 4WW ~ 150 ft mod I Days to Meet Goals 10 Frequency of Treatment Frequency Of Treatment Once a Day Treatment Plan Physical Therapy Treatment Plan Bed Mobility Training,Transfer Training,Gait Training, Therapeutic Exercise,Balance Retraining,Discharge Planning, Hot or Cold Pack,Neuromuscular Re-ed,Coordination Retraining ,Manual Therapy Precautions Other Precautions sacral wound: wound vac Recommendations To Nursing Amount of Assist Needed 1 Person Assist Discharge Recommendations PT Discharge Recommendations SNF Rehab Transportation Needs at Discharge Wheelchair/Cabulance
--- NOTE | 2024-03-17 13:57 | OT.IP.TRT ---
Current Diagnoses Pressure ulcer of sacral region, unspecified stage (03/15/24) Surgery Performed Operation Date: 03/14/24 14:15 Actual Procedures p SACRAL WOUND DEBRIDEMENT and WOUND VAC PLACEMENT - Vinod Daniel MD Occupational Therapy Treatment Note M2 OT-IP Current Condition Start: 03/16/24 14:12 Freq: Status: Active Protocol: Document 03/16/24 13:10 [facility] (Rec: 03/16/24 14:30 [facility] [id number]) Occupational Therapy Current Condition Current Condition Evaluation Date 03/16/24 Treatment Diagnosis Debridement of sacral wound Diagnosis Onset Date 03/14/24 M3 OT- IP Subjective and Pain Start: 03/16/24 14:12 Freq: Status: Active Protocol: Document 03/17/24 13:47 [facility] (Rec: 03/17/24 13:57 [facility] [id number]) OT- Subjective Occupational Therapy Visit Type Type Treatment Note Visit Start Time 13:14 Visit Stop Time 13:44 Occupational Therapy Visit Comments Patient Comments Pt reclined in chair on entrance of OT. Pt requesting to get back to bed, agreeable to participate with OT. Patient/Caregiver Goals TO get better. OT Pain Assessment Pain When Pain Assessed At Rest Pain Present Pain Present Pain Reported Location buttock Pain Behaviors Calling Out,Facial Grimacing, Guarding Management Techniques Re-positioning M4 OT- IP ADL's Start: 03/16/24 14:12 Freq: Status: Active Protocol: Document 03/17/24 13:47 [facility] (Rec: 03/17/24 13:57 [facility] [id number]) OT ADL-Oral Care General Eval Oral Care Ability Standby Assistance Areas of Assistance Retrieving/Set-Up of Items Comments Oral Care Comments pt performed oral hygiene while seated in chair. pt required OT for gathering supplies. pt was able to open toothpaste, apply to tooth brush, and complete oral hygiene without assist other than retreiving supplies. OT ADL-Toileting Comments OT Toileting Comments pt denies needing at this time . pt using brief for assist. M7 OT- IP Mobility and Balance Start: 03/16/24 14:12 Freq: Status: Active Protocol: Document 03/17/24 13:47 [facility] (Rec: 03/17/24 13:57 [facility] [id number]) OT- Bed Mobility Assessment Rolling Type of Rolling Roll to Right Level of Assistance Contact Guard Assistance Sit to Supine Sit to Supine Assist Moderate Assistance Scooting Scooting Up and Down in Bed Contact Guard Assistance OT-Transfer Assessment Sit to and From Stand Sit to and from Stand Minimal Assistance,1 Person Assistance Transfers Transfer Ability Minimal Assistance,1 Person Assistance Technique Transfer Destination Bed,Chair Transfer Technique Stand Step Pivot Devices Transfer Assistive Devices Gait Belt,Front Wheeled Walker Comments Mobility Comments pt scoots to edge of chair with min vc. pt performs sit> stand with min A. pt insisted on getting in bed from opposite side. when preparing to sit on bed pt needs vc to step to HOB. pt then performs stand>sit with CGA. OT- Gait Assessment Comments Gait Ability Comments pt amb with 4WW approximately 30'. pt performs slowly and requires occasional vcs to steer walker in the correct direction. pt requires CGA- Rosa for safety OT- Balance Assessment Sitting Balance and Reactions Static Sitting Balance Ability Fair Dynamic Sitting Balance Ability Fair Standing Balance and Reactions Static Standing Balance Ability Fair Dynamic Standing Balance Ability Poor M9 OT- IP Assessment and Plan Start: 03/16/24 14:12 Freq: Status: Active Protocol: Document 03/17/24 13:47 [id number] (Rec: 03/17/24 13:57 [facility] [id number]) OT Summary Assessment and Plan Potential Rehabilitation Potential Good Analytic Complexity at Evaluation High Summary OT Impairments Pain,Range of Motion,Strength, Balance,Coordination, Functional Cognition, Functional Mobility,Self- Feeding,Grooming,Dressing, Toileting,Bathing,Toilet Transfers,Shower Transfers, Activity Tolerance Progress Towards Goals Progressing Toward Goals,Slow Progress due to Medical Issues ,Slow Progress due to Activity Tolerance,Slow Progress due to Cognition Assessment Summary Pt was pleasant and cooperative with OT tx. Pt demonstrated improved activity tolerance and improved functional mobility. She was able to participate needing the assistance of one therapist today, which is an improvement from previous. Pt is progressing per established POC. Cont per POC. Goals Self-Feeding Goal Independent Grooming Goal Independent Dressing Goal Independent Toileting Goal Independent Bathing Goal Independent Toilet Transfer Goal Independent Shower Transfer Goal Independent Days to Meet Goals 30 Frequency of Treatment Other frequency 5x/week Treatment Plan OT Treatment Plan ADL Training,Functional Cognition Training,Functional Mobility,Patient/Family Education,Discharge Planning Discharge Recommendations OT Discharge Recommendations SNF Rehab Transportation Needs at Discharge Wheelchair/Cabulance
[2024-03-17] MEDS: HYDROCODONE/ACET 5/325 TABLET 1 TAB PO ×2 (14:39→22:28)
[2024-03-17 19:00] VITALS: BP 99/53; PULSE 61; RESP 18; TEMP 36.8; O2SAT 93
[2024-03-18 07:30] VITALS: BP 102/55; PULSE 59; RESP 15; TEMP 36.7; O2SAT 96
[2024-03-18] MEDS: clonazePAM 0.5 MG TABLET 2 MG PO ×3 (08:25→20:35)
[2024-03-18] MEDS: GABAPENTIN 100 MG CAPSULE 200 MG PO (08:26)
[2024-03-18] MEDS: CHOLECALCIFEROL (VITAMIN D3) 1,000 UNIT TABLET 1000 UNIT PO (08:26)
[2024-03-18] MEDS: NICOTINE 14 PATCH 14 MG TOP (08:26)
[2024-03-18] MEDS: PSYLLIUM HUSK 1 PACKET PO (08:30)
[2024-03-18] MEDS: SODIUM CHLORIDE 0.9% FLUSH 10 ML IV ×2 (08:35→20:36)
--- NOTE | 2024-03-18 11:54 | PM.PNPO.1 ---
Subjective Subjective Date Patient Seen: 03/18/24 Time Patient Seen: 11:54 Interval history: No major events Unlikely to have a discharge to [facility] until late next week Exam Vital Signs (past 8 hours): - 03/18/24 07:30 03/18/24 07:30 Temperature 98.1 F Pulse Rate 59 L Respiratory Rate 15 Blood Pressure 102/55 L Pulse Oximetry 96 Oxygen Delivery Method Room Air Oxygen Flow Rate 0 Oxygen Delivery Method Room Air Oxygen Flow Rate 0 Narrative Exam Narrative: General elderly woman alert oriented no acute distress Objective Labs 03/15/24 05:54 03/15/24 05:54 [facility] Medical History (Updated 03/09/24 @ 14:43 by Krystina Boggs RN) HLD (hyperlipidemia) COPD (chronic obstructive pulmonary disease) Anxiety Surgical History (Updated 03/09/24 @ 14:40 by Krystina Boggs RN) History of hip surgery (05/09/22) Social History (Updated 02/23/24 @ 13:16 by Tonya Lockhart MA) marital status: unknown household members: other lives independently: No caregiver/support person: Yes housing: [facility] Smoking Status: Current every day smoker alcohol intake: never substance use type: does not use Assessment & Plan Post-op Postoperative Procedures: Procedures Operation Date: 03/14/24 14:15 Actual Procedure Side Surgeon p SACRAL WOUND DEBRIDEMENT and WOUND VAC PLACEMENT Vinod Daniel MD Postoperative status narrative: -awaiting transfer to [facility] likely late next week -change wound VAC at bedside tomorrow
--- NOTE | 2024-03-18 13:10 | PT.IPTN ---
Current Diagnoses Pressure ulcer of sacral region, unspecified stage (03/15/24) Surgery Performed Operation Date: 03/14/24 14:15 Actual Procedures p SACRAL WOUND DEBRIDEMENT and WOUND VAC PLACEMENT - Vinod Daniel MD Physical Therapy Treatment Note M2 PT-IP Current Condition Start: 03/16/24 08:07 Freq: NEEDED Status: Active Protocol: Document 03/16/24 08:31 MB (Rec: 03/16/24 09:49 MB [id number]) Physical Therapy Current Condition Current Condition Evaluation Date 03/16/24 Treatment Diagnosis Debridement sacral wound, vac extends over right gluteal area M3 PT-IP Subjective Start: 03/16/24 08:07 Freq: NEEDED Status: Active Protocol: Document 03/18/24 14:23 TS (Rec: 03/18/24 14:54 TS [id number]) Subjective Physical Therapy Visit Type Type Treatment Note Visit Start Time 13:10 Visit Stop Time 13:50 Number of PASSENGER CAR 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 Therapy Pain Assessment Pain When Pain Assessed At Rest Pain Present Pain Present Pain Reported M4 PT-IP Mobility and Gait Start: 03/16/24 08:07 Freq: NEEDED Status: Active Protocol: Document 03/18/24 14:23 TS (Rec: 03/18/24 14:54 TS [id number]) PT-Bed Mobility Assessment Supine to Sit Supine to Sit Minimal Assistance,1 Person Assistance,Head of Bed Elevated,Bedrails Sit to Supine Sit to Supine Moderate Assistance,1 Person Assistance,Head of Bed Elevated,Bedrails Scooting Scooting to Edge of Bed Contact Guard Assistance Scooting Up and Down in Bed Maximum Assistance PT-Transfer Assessment Sit to and From Stand Sit to and from Stand Minimal Assistance,1 Person Assistance Equipment Transfer Assistive Device Gait Belt,4 Wheeled Walker Orthotic/Prosthetic Devices or Brace: No Comments Mobility Comments Supine to sit Gustavo, pt with slow movements sitting up to EOB. STS from bed Gustavo with FWW, therapist manages wound vac. She ambulated TTWB on R foot, cued for heel contact and foot flat ~60' in room CGA . Pt sat in chair but was too uncomfortable, requested back to bed. Sit to supine into bed ModA for LE's, nursing in room to assist in repositioning of pt. Pt was left in bed, all needs met. Gait Assessment Gait Gait Assistance Required: Contact Guard Assist Distance (Feet) 60 Able to Maintain Weight Bearing Status Yes During Gait Assistive Devices Assistive Device Gait Belt,4 Wheeled Walker Orthotic/Prosthetic Devices or Brace: No Gait Deviations General Gait Pattern Antalgic,Decreased Stride Length,Decreased Feet Clearance,Flexed Trunk,Lateral Trunk Lean Factors Limiting Gait Function Factors Limiting Gait Function Decreased Activity Tolerance, Decreased Strength,Limited Range of Motion,Pain,Poor Balance,Poor Safety Awareness Comments Gait Comments See mobility comments PT-Balance Assessment Sitting Balance and Reactions Static Sitting Balance Ability Fair Dynamic Sitting Balance Ability Fair Standing Balance and Reactions Static Standing Balance Ability Fair Dynamic Standing Balance Ability Fair Device Used 4WW M5 PT-IP Objective Assessments Start: 03/16/24 08:07 Freq: NEEDED Status: Active Protocol: Document 03/16/24 08:31 MB (Rec: 03/16/24 09:49 MB [id number]) Orientation Orientation/Cognition Level of Alertness Alert Orientation Name,Age,Birthday,Year, Situation Language Function Ability Hard of Hearing Safety Awareness Decreased Safety Awareness Memory Description Short 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 Strength Lower Extremity Strength Assessment Right Impaired Muscle Tone Muscle Tone WNL No Other Assessments Other Other Assessments Increased tone right PFs M6 PT-IP Treatment Start: 03/16/24 08:07 Freq: NEEDED Status: Active Protocol: Document 03/18/24 14:23 TS (Rec: 03/18/24 14:54 [id number]) Physical Therapy Treatment Education Education Provided Safety M7 PT-IP Assessment and Plan Start: 03/16/24 08:07 Freq: NEEDED Status: Active Protocol: Document 03/18/24 14:23 TS (Rec: 03/18/24 14:54 [id number]) PT Summary Assessment and Plan Potential Rehabilitation Potential Fair Summary Impairments Pain,ROM,Strength,Balance, Coordination,Sensation,Tone, Cognition,Bed Mobility, Transfers,Gait,Activity Tolerance Progress Towards Goals Slow Progress due to Pain,Slow Progress due to Medical Issues,Slow Progress due to Activity Tolerance Assessment Summary Kasey is making some progress with her mobility this session but continues to be limited. She required decreased assist for bed mobility this session, is limited by pain from sacral wound. She progressed her gait to ~60'CGA. She remains a high falls risk. PT continues to recommend SNF rehab at this time. Goals Bed Mobility Goal Independent Transfer Goal Independent,Front Wheeled Walker Gait Goal Independent,Front Wheel Walker Gait Distance 100 Other Goals improve transfers and ambualtion using 4WW ~ 150 ft mod I Days to Meet Goals 10 Frequency of Treatment Frequency Of Treatment Once a Day Treatment Plan Physical Therapy Treatment Plan Bed Mobility Training,Transfer Training,Gait Training, Therapeutic Exercise,Balance Retraining,Discharge Planning, Hot or Cold Pack,Neuromuscular Re-ed,Coordination Retraining ,Manual Therapy Precautions Other Precautions sacral wound: wound vac Recommendations To Nursing Amount of Assist Needed 1 Person Assist Discharge Recommendations PT Discharge Recommendations SNF Rehab Transportation Needs at Discharge Wheelchair/Cabulance
[2024-03-18] MEDS: OXYCODONE IR 5 MG TABLET PO ×2 (14:44→20:35)
[2024-03-18 19:00] VITALS: BP 100/57; PULSE 64; RESP 20; TEMP 37.1; O2SAT 95
[2024-03-19 08:00] VITALS: BP 123/61; PULSE 58; RESP 16; TEMP 37.1; O2SAT 94
[2024-03-19] MEDS: polyethylene glycoL 3350 17 GM POWD.PACK PO (08:24)
[2024-03-19] MEDS: OXYCODONE IR 5 MG TABLET PO ×3 (08:25→18:02)
[2024-03-19] MEDS: ACETAMINOPHEN 325 MG TABLET 650 MG PO ×2 (08:25→18:03)
[2024-03-19] MEDS: NICOTINE 21 MG PATCH TOP (08:26)
[2024-03-19] MEDS: CHOLECALCIFEROL (VITAMIN D3) 1,000 UNIT TABLET 1000 UNIT PO (08:26)
[2024-03-19] MEDS: clonazePAM 0.5 MG TABLET 2 MG PO ×3 (08:26→20:26)
[2024-03-19] MEDS: GABAPENTIN 100 MG CAPSULE 200 MG PO (08:26)
[2024-03-19] MEDS: IBUPROFEN 600 MG TABLET PO ×2 (08:27→18:02)
--- NOTE | 2024-03-19 11:30 | PT.IPTN ---
Current Diagnoses Pressure ulcer of sacral region, unspecified stage (03/15/24) Surgery Performed Operation Date: 03/14/24 14:15 Actual Procedures p SACRAL WOUND DEBRIDEMENT and WOUND VAC PLACEMENT - Vinod Daniel MD Physical Therapy Treatment Note M2 PT-IP Current Condition Start: 03/16/24 08:07 Freq: NEEDED Status: Active Protocol: Document 03/16/24 08:31 MB (Rec: 03/16/24 09:49 MB [id number]) Physical Therapy Current Condition Current Condition Evaluation Date 03/16/24 Treatment Diagnosis Debridement sacral wound, vac extends over right gluteal area M3 PT-IP Subjective Start: 03/16/24 08:07 Freq: NEEDED Status: Active Protocol: Document 03/19/24 11:07 KS (Rec: 03/19/24 12:47 KS [id number]) Subjective Physical Therapy Visit Type Type Treatment Note Visit Start Time 11:07 Visit Stop Time 11:30 Number of CHAUFFEUR MOTORBUS Visits 2 Physical Therapy Visit Comments Patient Comments Pt found resting in bed, is agreeable to PT. Therapy Pain Assessment Pain When Pain Assessed At Rest Pain Present Pain Present Pain Reported Location buttock Scale Used c/o soreness buttocks; pain scale not stated Pain Management Techniques Modification of Treatment,Re- positioning M4 PT-IP Mobility and Gait Start: 03/16/24 08:07 Freq: NEEDED Status: Active Protocol: Document 03/19/24 11:07 KS (Rec: 03/19/24 12:47 KS [id number]) PT-Bed Mobility Assessment Rolling Type of Rolling Roll to Left Level of Assist Contact Guard Assistance PT-Transfer Assessment Comments Mobility Comments Pt in bed upon arrival, reports high level of fatigue following increased mobilization this AM w/ nursing staff. Pt agreeble to repositioning and exercises at this time. Pt able to tolerate LE exercises to promote blood flow and strethening and pt agreeable to repositioning to off weight sacrum. CGA to Min A for turning and repositioning in bed. Gait Assessment Comments Gait Comments Pt reports she is too fatigued to ambulate at this time. PT-Balance Assessment Sitting Balance and Reactions Static Sitting Balance Ability Fair Dynamic Sitting Balance Ability Fair Standing Balance and Reactions Static Standing Balance Ability Fair Dynamic Standing Balance Ability Fair Device Used 4WW M5 PT-IP Objective Assessments Start: 03/16/24 08:07 Freq: NEEDED Status: Active Protocol: Document 03/16/24 08:31 MB (Rec: 08/01/24 09:49 MB [id number]) Orientation Orientation/Cognition Level of Alertness Alert Orientation Name,Age,Birthday,Year, Situation Language Function Ability Hard of Hearing Safety Awareness Decreased Safety Awareness Memory Description 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 Strength Lower Extremity Strength Assessment Right Impaired Muscle Tone Muscle Tone WNL No Other Assessments Other Other Assessments Increased tone right PFs M6 PT-IP Treatment Start: 03/16/24 08:07 Freq: NEEDED Status: Active Protocol: Document 03/19/24 11:07 KS (Rec: 03/19/24 12:47 KS [id number]) Physical Therapy Treatment Exercises Exercises Ankle Pumps,Quad Sets,Heel Slides Education Education Provided Safety M7 PT-IP Assessment and Plan Start: 03/16/24 08:07 Freq: NEEDED Status: Active Protocol: Document 03/19/24 11:07 KS (Rec: 03/19/24 12:47 KS [id number]) PT Summary Assessment and Plan Potential Rehabilitation Potential Fair Summary Impairments Pain,ROM,Strength,Balance, Coordination,Sensation,Tone, Cognition,Bed Mobility, Transfers,Gait,Activity Tolerance Progress Towards Goals Slow Progress due to Pain,Slow Progress due to Medical Issues,Slow Progress due to Activity Tolerance Assessment Summary Pt reporting high level of fatigue due to active morning w/ nursing staff but was able to tolerate LE exercises. Repositioned pt to offweight sacral wound. CGa to Min A throughout treatment. PT continues to recommend SNF rehab at this time. Goals Bed Mobility Goal Independent Transfer Goal Independent,Front Wheeled Walker Gait Goal Independent,Front Wheel Walker Gait Distance 100 Other Goals improve transfers and ambualtion using 4WW ~ 150 ft mod I Days to Meet Goals 10 Frequency of Treatment Frequency Of Treatment Once a Day Treatment Plan Physical Therapy Treatment Plan Bed Mobility Training,Transfer Training,Gait Training, Therapeutic Exercise,Balance Retraining,Discharge Planning, Hot or Cold Pack,Neuromuscular Re-ed,Coordination Retraining ,Manual Therapy Precautions Other Precautions sacral wound: wound vac Recommendations To Nursing Amount of Assist Needed 1 Person Assist Discharge Recommendations PT Discharge Recommendations SNF Rehab Transportation Needs at Discharge Wheelchair/Cabulance
--- NOTE | 2024-03-19 12:41 | PM.PNPO.1 ---
Subjective Subjective Date Patient Seen: 03/19/24 Time Patient Seen: 12:41 Interval history: No acute events Exam Vital Signs (past 8 hours): - 03/19/24 08:00 Temperature 98.8 F Pulse Rate 58 L Respiratory Rate 16 Blood Pressure 123/61 Pulse Oximetry 94 Oxygen Flow Rate 0 Oxygen Delivery Method Room Air Oxygen Flow Rate 0 Narrative Exam Narrative: Gen-Elderly woman alert and oriented Back-Sacral wound clean Objective Labs 03/15/24 05:54 03/15/24 05:54 PFSH Medical History (Updated 03/09/24 @ 14:43 by Krystina Boggs RN) HLD (hyperlipidemia) COPD (chronic obstructive pulmonary disease) Anxiety Surgical History (Updated 03/09/24 @ 14:40 by Krystina Boggs RN) History of hip surgery (05/09/22) Social History (Updated 02/23/24 @ 13:16 by Tonya Lockhart MA) marital status: unknown household members: other lives independently: No caregiver/support person: Yes housing: care home Smoking Status: Current every day smoker alcohol intake: never substance use type: does not use Assessment & Plan Post-op Postoperative Procedures: Procedures Operation Date: 03/14/24 14:15 Actual Procedure Side Surgeon p SACRAL WOUND DEBRIDEMENT and WOUND VAC PLACEMENT Vinod Daniel MD Postoperative plan narrative: Changed wound vac today at bedside. Wound is clean Awaiting dc to facility
--- NOTE | 2024-03-19 14:35 | PC.NURSE ---
Day shift: Wound vac dressing changed by this RN and MD Alcala this AM. Pt OOB ambulating with 1PA + FWW. She states she feels much better and steady today.
--- NOTE | 2024-03-19 15:50 | CM.DPNOTE ---
DCP Cont Therapies and medical team continue to recommend SNF placement. CM team to contact Ana with [facility] Wednesday. No contact has been made with [facility], cannot get through on their main line. Hospital exempt PASRR completed and signed. Plan: Discharge anticipated to [facility] once insurance auth obtained and SNF bed is available. MOLLY
[2024-03-19 19:45] VITALS: BP 132/56; PULSE 67; RESP 20; TEMP 37; O2SAT 97
[2024-03-20] MEDS: HYDROCODONE/ACET 5/325 TABLET 1 TAB PO (02:09)
[2024-03-20] MEDS: IBUPROFEN 600 MG TABLET PO ×3 (07:49→20:59)
[2024-03-20] MEDS: ACETAMINOPHEN 325 MG TABLET 650 MG PO ×3 (07:50→20:59)
[2024-03-20] MEDS: OXYCODONE IR 5 MG TABLET PO ×2 (07:50→16:23)
[2024-03-20] MEDS: NICOTINE 21 MG PATCH TOP (07:50)
[2024-03-20 08:00] VITALS: BP 140/72; PULSE 66; RESP 16; TEMP 36.8; O2SAT 94
[2024-03-20] MEDS: CHOLECALCIFEROL (VITAMIN D3) 1,000 UNIT TABLET 1000 UNIT PO (09:43)
[2024-03-20] MEDS: clonazePAM 0.5 MG TABLET 2 MG PO ×3 (09:43→20:58)
[2024-03-20] MEDS: polyethylene glycoL 3350 17 GM POWD.PACK PO (09:43)
[2024-03-20] MEDS: GABAPENTIN 100 MG CAPSULE 200 MG PO (09:43)
--- NOTE | 2024-03-20 10:21 | PT-IP ANOTE ---
Pt reports she has not been able to sleep and she is upset about several things regarding her daughter and she does not know if her rent has been paid. She declines mobility. Pt lying with weight/legs shifted to right hip and she is not receptive to education about lying on her left side given right sided wound and wound vac. She states pt is worse on her right side when she lies on her left. PT speaks with SW about following up with pt about her concerns about her rent and disposition location.
--- NOTE | 2024-03-20 10:49 | CM.DPC ---
DCP Cont. Reviewed EMR and team rounds for status updates. PAN OPERATOR called [facility], they will submit the auth today for [facility]. She can accept on Wed if the auth comes through. Will confirm transport time prior to her d/c.
--- NOTE | 2024-03-20 11:53 | DIET.PN1 ---
Dietary Progress Note EMR reviewed. Recent recorded PO intakes 75-100%. DFM reviewed for meal composition. Karri being sent BID, continue coordinating with kitchen for test tolerated flavor, ONS tolerated 1x/day. Will continue to monitor po intakes. Ht: 162.56 cm Wt: 52 kg BMI: 19.7 Last BM: 03/19/24 (03/19/24 10:42) MNA: 9 Nathaniel Score: 19 Diet: 03/14/24 Dinner General (Regular) Diet Diet Modifications: Nutrition Percent Meal Consumed 90 03/20/24 08:39 Percent Meal Consumed 100% 03/19/24 18:00 Percent Meal Consumed 75% 03/19/24 08:45 Percent Meal Consumed 100% 03/18/24 18:00 Percent Meal Consumed 100% 03/18/24 13:31 Labs: RBC 4.07 X10^6/uL (4.0-5.2) 03/15/24 05:54 Hgb 12.9 g/dL (12.0-16.0) 03/15/24 05:54 Hct 38.3 % (36-46) 03/15/24 05:54 Creatinine 1.01 mg/dL (0.52-1.04) 03/15/24 05:54 Electronically Signed by: Yudelka Jin 03/20/24 11:53 Clinical [address] [address]
--- NOTE | 2024-03-20 12:34 | PM.CN ---
History of Present Illness Consult details Date Patient Seen: 03/20/24 Time Patient Seen: 12:15 Chief complaint: Debridement sacral wound w/wound vac place *OPB* Narrative: The patient is an 83-year-old female who was recently admitted to the hospital with an infected sacral decubitus ulcer. She underwent surgical debridement on March 14, 2024. The patient reports that the ulcer 1st developed following right hip surgery in 2021. She has been residing in [place] [facility] [place] since then. She reports that the ulcer is quite painful. She previously has been receiving care at the [facility]. The patient reports a good appetite and denies having any recent fever or chills. She is able to ambulate with the use of a walker. The patient currently has a wound VAC in place. The patient has been afebrile in her white count is normal. Meds Home Medications and Allergies Home Medications Medication Instructions Recorded Confirmed Type clonazepam 1 mg tablet 2 mg (2 x 1 mg) PO TID 7 days #21 05/12/22 03/14/24 Rx tabs aspirin 81 mg tablet,delayed 81 mg PO BID 02/23/24 03/14/24 History release (Adult Low Dose Aspirin) cholecalciferol (vitamin D3) 1,000 units PO DAILY 02/23/24 03/14/24 History docusate sodium 100 mg capsule 100 mg PO DAILY 02/23/24 03/14/24 History (Colace) gabapentin 100 mg tablet 200 mg PO DAILY 02/23/24 03/14/24 History oxycodone 5 mg tablet 5 mg PO BID PRN Sleep 02/23/24 03/14/24 History trazodone 100 mg tablet 200 mg PO BEDTIME PRN Sleep 02/23/24 03/14/24 History Allergies Allergy/AdvReac Type Severity Reaction Status Date / Time Sulfa (Sulfonamide Allergy Verified 03/14/24 13:51 Antibiotics) Review of Systems Constitutional Comments: Negative for any recent changes in overall health Cardiovascular Comments: No chest pain Respiratory Comments: No shortness of breath Gastrointestinal Comments: No loss of appetite Exam Vital Signs (past 8 hours): - 03/20/24 08:00 Temperature 98.3 F Pulse Rate 66 Respiratory Rate 16 Blood Pressure 140/72 Pulse Oximetry 94 Oxygen Flow Rate 0 Oxygen Delivery Method Room Air Oxygen Flow Rate 0 Const Other: The patient is an elderly female who is alert and oriented and in no apparent distress Resp Other: Unlabored Skin Other: Wound VAC place over sacral decubitus Objective Labs 03/15/24 05:54 03/15/24 05:54 [facility] Medical History HLD (hyperlipidemia) COPD (chronic obstructive pulmonary disease) Anxiety Surgical History History of hip surgery (05/09/22) Social History marital status: unknown household members: other lives independently: No caregiver/support person: Yes housing[place] [facility] Tobacco & Substance Use Smoking Status: Current every day smoker alcohol intake: never substance use type: does not use Assessment & Plan Assessment and plan (1) Sacral decubitus ulcer: Qualifiers: Pressure injury stage: unspecified pressure injury stage Qualified Code(s): L89.159 - Pressure ulcer of sacral region, unspecified stage Status: Acute Assessment & Plan narrative: The patient has a large sacral decubitus with a wound VAC in place. Recommend continue treatment with negative pressure wound therapy, protein supplementation, and pressure offloading. Follow up at wound center after discharge. Time-Based Coding :: [45] spent with patient and on the chart (including review of chart, obtaining history, exam, reviewing outside data, placing orders, documenting exam and treatment plan, and counseling patient) on [03/20/24].
--- NOTE | 2024-03-20 13:15 | OT.IPNOTE ---
Attempted to see pt x2 for therapy services. Around 10 am pt was fatigued and requested to rest in bed. 1145 pt was up in the chair and requested to stay up in the chair stating that she had performed all ADLs earlier. Will hold and continue to follow.
--- NOTE | 2024-03-20 13:26 | CM.DPC ---
DCP Cont. Reviewed EMR and team rounds for status updates. Called and spoke with Ana at [facility], she started the prior-auth today, and can accept on Wednesday if the auth is in. Will continue to monitor.
--- NOTE | 2024-03-20 14:29 | P.PN_ITS ---
Subjective Subjective Date Patient Seen: 03/20/24 Interval history: No significant changes Exam Vital Signs (past 8 hours): - 03/20/24 08:00 Temperature 98.3 F Pulse Rate 66 Respiratory Rate 16 Blood Pressure 140/72 Pulse Oximetry 94 Oxygen Flow Rate 0 Oxygen Delivery Method Room Air Oxygen Flow Rate 0 Narrative Exam Narrative: Sleeping peacefully Objective Labs 03/15/24 05:54 03/15/24 05:54 PFSH Medical History HLD (hyperlipidemia) COPD (chronic obstructive pulmonary disease) Anxiety Surgical History History of hip surgery (05/09/22) Social History (Updated 02/23/24 @ 13:16 by Tonya Lockhart MA) marital status: unknown household members: other lives independently: No caregiver/support person: Yes housing: long term Smoking Status: Current every day smoker alcohol intake: never substance use type: does not use Assessment & Plan Assessment and plan (1) Sacral decubitus ulcer: Qualifiers: Pressure injury stage: unspecified pressure injury stage Qualified Code(s): L89.159 - Pressure ulcer of sacral region, unspecified stage Status: Acute Plan To detention facility once a bed is available We will change wound VAC at bedside tomorrow if she is still here Time-Based Coding :: [TOTAL MINUTES] spent with patient and on the chart (including review of chart, obtaining history, exam, reviewing outside data, placing orders, documenting exam and treatment plan, and counseling patient) on [DATE].
[2024-03-20 19:00] VITALS: BP 109/54; PULSE 64; RESP 20; TEMP 37.1; O2SAT 95
[2024-03-20] MEDS: TRAZODONE 50 MG TABLET 200 MG PO (20:58)
[2024-03-21 08:00] VITALS: BP 112/61; PULSE 57; RESP 15; TEMP 36.7; O2SAT 93
[2024-03-21] MEDS: clonazePAM 0.5 MG TABLET 2 MG PO ×3 (09:06→20:49)
[2024-03-21] MEDS: polyethylene glycoL 3350 17 GM POWD.PACK PO (09:06)
[2024-03-21] MEDS: ACETAMINOPHEN 325 MG TABLET 650 MG PO ×2 (09:07→20:50)
[2024-03-21] MEDS: NICOTINE 21 MG PATCH TOP (09:07)
[2024-03-21] MEDS: GABAPENTIN 100 MG CAPSULE 200 MG PO (09:07)
[2024-03-21] MEDS: CHOLECALCIFEROL (VITAMIN D3) 1,000 UNIT TABLET 1000 UNIT PO (09:07)
--- NOTE | 2024-03-21 13:07 | CM.DPC ---
DCP Cont. Reviewed EMR and team rounds for status updates. Plan continues to be for pt to d/c to [facility] tomorrow (Wed). Met with pt to update, also reassured her that her rent has been pain, finances are current. *Staff-please avoid getting into financial conversations with this patient, she is forgetful and has been told that everything is fine with her debit card and rent.
--- NOTE | 2024-03-21 13:17 | PT-IP ANOTE ---
checked on pt and pt refused PT. stated that she is really tired.
--- NOTE | 2024-03-21 14:35 | OT.IPNOTE ---
Attempted to see pt for OT services [id number] but pt was sleeping. Returned later but pt had just returned to room after ambulating with nursing staff. Pt declined further activity at that time. will hold and continue to follow. [facility] (03/[facility]/24)
--- NOTE | 2024-03-21 16:34 | PT-IP ANOTE ---
checked on pt and refused PT. stated that she already walked with nursing and now is napping.
--- NOTE | 2024-03-21 17:18 | P.PN_ITS ---
Subjective Subjective Date Patient Seen: 03/21/24 Interval history: Waiting for a bed at a longterm facility. No changes to status. Exam Vital Signs (past 8 hours): Oxygen Delivery Method Room Air Oxygen Flow Rate 0 Const General: No acute distress Objective Labs 03/15/24 05:54 03/15/24 05:54 [facility] Medical History HLD (hyperlipidemia) COPD (chronic obstructive pulmonary disease) Anxiety Surgical History History of hip surgery (05/09/22) Social History (Updated 02/23/24 @ 13:16 by Tonya Lockhart MA) marital status: unknown household members: other lives independently: No caregiver/support person: Yes housing: assisted Smoking Status: Current every day smoker alcohol intake: never substance use type: does not use Assessment & Plan Assessment and plan (1) Sacral decubitus ulcer: Qualifiers: Pressure injury stage: unspecified pressure injury stage Qualified Code(s): L89.159 - Pressure ulcer of sacral region, unspecified stage Status: Acute Plan No changes to status Awaiting bed at longterm facility Time-Based Coding :: [TOTAL MINUTES] spent with patient and on the chart (including review of chart, obtaining history, exam, reviewing outside data, placing orders, documenting exam and treatment plan, and counseling patient) on [DATE].
[2024-03-21 19:00] VITALS: BP 124/73; PULSE 64; RESP 17; TEMP 36; O2SAT 96
[2024-03-21] MEDS: TRAZODONE 50 MG TABLET 200 MG PO (20:50)
[2024-03-22 08:00] VITALS: BP 117/68; PULSE 53; RESP 18; TEMP 36.7; O2SAT 94
[2024-03-22] MEDS: NICOTINE 21 MG PATCH TOP (09:29)
[2024-03-22] MEDS: CHOLECALCIFEROL (VITAMIN D3) 1,000 UNIT TABLET 1000 UNIT PO (09:29)
[2024-03-22] MEDS: clonazePAM 0.5 MG TABLET 2 MG PO (09:29)
[2024-03-22] MEDS: GABAPENTIN 100 MG CAPSULE 200 MG PO (09:29)
[2024-03-22] MEDS: ACETAMINOPHEN 325 MG TABLET 650 MG PO (09:36)
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
--- NOTE | 2024-03-22 11:00 | PT.IPTN ---
Current Diagnoses Pressure ulcer of sacral region, unspecified stage (03/15/24) Surgery Performed Operation Date: 03/14/24 14:15 Actual Procedures p SACRAL WOUND DEBRIDEMENT and WOUND VAC PLACEMENT - Vinod Daniel MD Physical Therapy Treatment Note M2 PT-IP Current Condition Start: 03/16/24 08:07 Freq: NEEDED Status: Active Protocol: Document 03/16/24 08:31 MB (Rec: 03/16/24 09:49 MB [id number]) Physical Therapy Current Condition Current Condition Evaluation Date 03/16/24 Treatment Diagnosis Debridement sacral wound, vac extends over right gluteal area M3 PT-IP Subjective Start: 03/16/24 08:07 Freq: NEEDED Status: Active Protocol: Document 03/22/24 11:00 AB (Rec: 03/22/24 11:45 AB [id number]) Subjective Physical Therapy Visit Type Type Treatment Note Visit Start Time 11:00 Visit Stop Time 11:40 Number of CLIENT ACCOUNT SPECIALIST Visits 0 Physical Therapy Visit Comments Patient Comments agreeable to do PT Therapy Pain Assessment Pain When Pain Assessed At Rest Pain Present Pain Present Pain Reported Location sacrum Scale Used pain scale not stated Pain Management Techniques Distraction,Modification of Treatment,Re-positioning, Timing of Activity with Medications M4 PT-IP Mobility and Gait Start: 03/16/24 08:07 Freq: NEEDED Status: Active Protocol: Document 03/22/24 11:00 AB (Rec: 03/22/24 11:45 AB [id number]) PT-Bed Mobility Assessment Supine to Sit Supine to Sit Maximum Assistance,Head of Bed Elevated,Bedrails PT-Transfer Assessment Sit to and From Stand Sit to and from Stand Moderate Assistance,Maximum Assistance,1 Person Assistance ,Use of Upper Extremities Equipment Transfer Assistive Device Gait Belt,4 Wheeled Walker Orthotic/Prosthetic Devices or Brace: No Transfers Transfer Destination Chair,Toilet Transfer Technique ambulated Transfer Ability Level of Assist Minimal Assistance,1 Person Assistance,Use of Upper Extremities Comments Mobility Comments pt supine in bed and agreeable to do PT. completed supine to sit max A and max cues. HOB elevated and pt used bed rail to assist. pt needed increase time to completed and required 2 attempts to sit up. completed sit to stand from EOB mod to max A and cues and ambulated ~ 75 ft min A using 4WW. pt requested to use the toilet and ambulated to the toilet using 4WW. max A for controlled descent to the toilet using grab bar. completed sit to stand from the toilet using grab bar mod A and cues and needed assistance with brief management. pt ambulated to the chair using 4WW min A. positioned pt on the chair. call light and table placed within reach. Gait Assessment Gait Gait Assistance Required: Minimum Assistance Distance (Feet) 75 Able to Maintain Weight Bearing Status Yes During Gait Assistive Devices Assistive Device Gait Belt,4 Wheeled Walker Orthotic/Prosthetic Devices or Brace: No Gait Deviations General Gait Pattern Antalgic,Decreased Stride Length,Decreased Feet Clearance,Step-to Gait Factors Limiting Gait Function Factors Limiting Gait Function Decreased Activity Tolerance, Decreased Strength,Difficulty Following Directions,Limited Range of Motion,Pain,Poor Balance,Poor Safety Awareness M5 PT-IP Objective Assessments Start: 03/16/24 08:07 Freq: NEEDED Status: Active Protocol: Document 03/16/24 08:31 MB (Rec: 03/16/24 09:49 MB [id number]) Orientation Orientation/Cognition Level of Alertness Alert Orientation Name,Age,Birthday,Year, Situation Language Function Ability Hard of Hearing Safety Awareness Decreased Safety Awareness Memory Description Short Term Impaired,Jail Impaired Comments Pt is not very descriptive Gross Range of Motion Upper Extremity ROM Impairments Defer to OT Lower Extremity ROM Assessment Right Impaired Impairments Edema lateral right hip and pt self-limits range and PFs are very tight/shortened functionally with gait: pt states she has been toe walking since hip surgery a year ago. Strength Lower Extremity Strength Assessment Right Impaired Muscle Tone Muscle Tone WNL No Other Assessments Other Other Assessments Increased tone right PFs M6 PT-IP Treatment Start: 03/16/24 08:07 Freq: NEEDED Status: Active Protocol: Document 03/22/24 11:00 AB (Rec: 03/22/24 11:45 AB [id number]) Physical Therapy Treatment Education Education Provided Safety M7 PT-IP Assessment and Plan Start: 03/16/24 08:07 Freq: NEEDED Status: Active Protocol: Document 03/22/24 11:00 AB (Rec: 03/22/24 11:45 AB [id number]) PT Summary Assessment and Plan Potential Rehabilitation Potential Fair Summary Impairments Pain,ROM,Strength,Balance, Coordination,Sensation,Tone, Cognition,Bed Mobility, Transfers,Gait,Activity Tolerance Progress Towards Goals Slow Progress due to Activity Tolerance,Slow Progress - Other Assessment Summary pt requiring max A for bed mobility and mod to max A for sit to stand but able to ambulate using 4WW min A ~ 75 ft. pt will benefit from SNF rehab to improve overall mobility independence. Goals Bed Mobility Goal Independent Transfer Goal Independent,Front Wheeled Walker Gait Goal Independent,Front Wheel Walker Gait Distance 100 Other Goals improve transfers and ambualtion using 4WW ~ 150 ft mod I Days to Meet Goals 10 Frequency of Treatment Frequency Of Treatment Once a Day Treatment Plan Physical Therapy Treatment Plan Bed Mobility Training,Transfer Training,Gait Training, Therapeutic Exercise,Balance Retraining,Discharge Planning, Hot or Cold Pack,Neuromuscular Re-ed,Coordination Retraining ,Manual Therapy Precautions Other Precautions sacral wound: wound vac Recommendations To Nursing Amount of Assist Needed 1 Person Assist Discharge Recommendations PT Discharge Recommendations SNF Rehab Transportation Needs at Discharge Wheelchair/Cabulance
--- NOTE | 2024-03-22 11:32 | PM.DS.1 ---
History of Present Illness History of Present Illness Date Patient Seen: 03/22/24 Time Patient Seen: 11:32 Chief complaint: Debridement sacral wound w/wound vac place *OPB* Narrative: Admitted for management of a sacral decubitus ulcer. Discharge Providers Provider Date of admission: 03/15/24 07:45 Discharge Date: 03/22/24 Primary care physician: Baudilio West MD Consults: 03/14/24 16:20 Consult to Occupational Therapy Evaluate & Treat Comment: limited mobility Physician Instructions: Evaluate and treat Consult to Physical Therapy Evaluate & Treat Comment: limited mobility Physician Instructions: Evaluate and Treat 03/15/24 10:20 Consult to Dietitian, Adult Routine Comment: Reason For Exam: chronic wound Consult to Wound Care Routine Comment: Consulting Provider: [facility] 03/15/24 12:42 Consult to POWER SHOVEL OPERATOR - Fire Prevention Research Engineer Routine Comment: Fire Prevention Research Engineer Consult needed for:: Unable to care for self Comment: Has chronic wound. She would benefit from a pressure distribution bed or mattress, ongoing wound care 03/15/24 15:14 Consult to Dietitian, Adult Routine Comment: Reason For Exam: Malnutrition Discharge provider: Luis Miguel Alcala MD Summary Hospital Course Discharge Diagnosis: Sacral decubitus ulcer Hospital Course: She underwent debridement of sacral ulcer 03/14. She remained hospitalized until SNF became available. Unremarkable hospitalization Exam Vital Signs (past 8 hours): - 03/22/24 08:00 Temperature 98.1 F Pulse Rate 53 L Respiratory Rate 18 Blood Pressure 117/68 Pulse Oximetry 94 Oxygen Delivery Method Room Air Oxygen Flow Rate 0 Narrative Exam Narrative: Gen-Elderly woman alert and oriented Back-Wound vac holding suction Objective Labs 03/15/24 05:54 03/15/24 05:54 [facility] Medical History HLD (hyperlipidemia) COPD (chronic obstructive pulmonary disease) Anxiety Surgical History History of hip surgery (05/09/22) Social History (Updated 02/23/24 @ 13:16 by Tonya Lockhart MA) marital status: unknown household members: other lives independently: No caregiver/support person: Yes housing: [facility] Smoking Status: Current every day smoker alcohol intake: never substance use type: does not use Discharge Plan Discharge Plan Patient Disposition: SNF Transfer to: [facility] Discharge orders & Medications Prescriptions: Continued gabapentin 100 mg tablet 200 mg PO DAILY trazodone 100 mg tablet 200 mg PO BEDTIME PRN (Reason: Sleep) aspirin [Adult Low Dose Aspirin] 81 mg tablet,delayed release (DR/EC) 81 mg PO BID docusate sodium [Colace] 100 mg capsule 100 mg PO DAILY cholecalciferol (vitamin D3) 1,000 units PO DAILY oxycodone 5 mg tablet 5 mg PO BID PRN (Reason: Sleep) clonazepam 1 mg tablet 2 mg PO TID 7 Days Qty: 21 0RF Follow up/Referrals: Baudilio West MD [Primary Care Provider] - Visit Report/Discharge Packet Stand Alone Forms: Patient Portal/API Discharge Data Primary Care Provider: Baudilio West
--- NOTE | 2024-03-22 13:43 | PC.NURSE ---
Wound Vac removed per MD order and wet to dry dressing placed with Allevyn Gentle Border overtop. Wound bed is clean and pink and without drainage. Pt states her wound and bottom feel much better now and she denies pain at this time. Belongings are packed up and report is being called at this time.
--- NOTE | 2024-03-22 13:56 | PC.NURSE ---
Addendum entered by Vicky Liu R.N. 03/22/24 14:34: Pt out via w/c by Transport personnel from [facility] with packet and all belongings. Original Note: Report called to Darlyn NEGRON at [facility] and all questions have been answered. Pt is packed up and ready to be transferred when transport arrives.
== END 2024-03-22 14:35 | DRG 570 ==
LOC: OR 03-16 07:17 → AC 03-16 07:17
PROVIDERS: Admitting Provider Surgery; PCP Internal Medicine; Referring Provider Surgery; Visit Provider Surgery
PROC: 0JB70ZZ Excision of Back Subcutaneous Tissue and Fascia, Open Approach (ICD-10-PCS; principal; 2024-03-14 14:15)
DX: L89.159 Pressure ulcer of sacral region, unspecified stage (principal); E43 Unspecified severe protein-calorie malnutrition; Z68.1 Body mass index [BMI] 19.9 or less, adult; K52.9 Noninfective gastroenteritis and colitis, unspecified; R15.9 Full incontinence of feces; F41.9 Anxiety disorder, unspecified
CPT/HCPCS: 36415; 80053; 83735; 84100; 84134; 85025; 97110; 97116; 97162; 97166; 97530; 97535; 99406; J0171; J0690; J1100; J1170; J2405; J2704